=== PATIENT | male | born 1980 | race Caucasian/White ===

== ENCOUNTER 2016-07-17 17:05 | Emergency (ER) | payer OTHER ==
[2016-07-17 17:14] VITALS: BP 126/69; PULSE 93; TEMP 97.6; BMI 19.9
--- NOTE | 2016-07-17 18:44 | PDOC ---
History of Present Illness - General Stated Complaint: SWOLLEN FEET Time Seen by Provider: 07/17/16 17:20 History Source: Patient Exam Limitations: Language Barrier - History of Present Illness Initial Comments: 07/17/16 18:38 CC homeless with swelling to feet x 1 days post could in rain Severity: mild Associated Symptoms: denies: cough, fever/chills, nausea/vomiting Past History - Past Medical History Allergies/Adverse Reactions: Allergies Allergy/AdvReac Type Severity Reaction Status Date / Time No Known Allergies Allergy Verified 07/17/16 17:14 Home Medications: Ambulatory Orders Alprazolam [Xanax] 0.5 mg PO TID #6 tablet MDD 3 10/02/15 Asthma: Yes (as a child) Cancer: No Cardiac Disorders: No CVA: No COPD: No CHF: No Dementia: No Diabetes: No GI Disorders: No Disorders: No HTN: No Hypercholesterolemia: No Kidney Stones: No Liver Disease: No Suicide Attempt (Hx): No Seizures: No Thyroid Disease: No - Surgical History Abdominal Surgery: No Appendectomy: No Cardiac Surgery: No Cholecystectomy: No Lung Surgery: No Neurologic Surgery: No Orthopedic Surgery: No - Reproductive History Testicular Surgery: No - Psycho/Social/Smoking Cessation Hx Anxiety: No Suicidal Ideation: No Smoking History: Current every day smoker Have you smoked in the past 12 months: No Number of Cigarettes Smoked Daily: 7 Cigars Per Day: 0 Information on smoking cessation initiated: No 'Breaking Loose' booklet given: 04/29/14 Hx Alcohol Use: Yes Drug/Substance Use Hx: No Substance Use Type: Alcohol, Cocaine, Marijuana Hx Substance Use Treatment: No Review of Systems - Review of Systems Constitutional: No: Chills, Fever, Malaise HEENTM: Yes: Blurred Vision, Nose Congestion Respiratory: No: Symptoms reported, Cough, Hemoptysis Cardiac (ROS): No: Edema ABD/GI: Yes: Symptoms Reported *Physical Exam - Vital Signs Last Vital Signs Temp Pulse Resp BP Pulse Ox 97.6 F 93 H 18 126/69 98 07/17/16 17:09 07/17/16 17:09 07/17/16 17:09 07/17/16 17:09 07/17/16 17:09 - Physical Exam General Appearance: Yes: Appropriately Dressed. No: Apparent Distress HEENT: positive: TMs Normal, Pharynx Normal Neck: negative: Rigid Respiratory/Chest: positive: Lungs Clear, Accessory Muscle Use Cardiovascular: positive: Regular Rhythm, Regular Rate. negative: Murmur Integumentary: positive: Other (mild STS to feet slight redness; toes, feet= skin but no skin breaks, infection) Medical Decision Making - Medical Decision Making 07/17/16 18:42 will suggest pt elevate feet JULIET; wound check in ED in 2 days *DC/Admit/Observation/Transfer Diagnosis at time of Disposition: Dependent edema, Burning feet syndrome - Discharge Dispostion Disposition: HOME Condition at time of disposition: Stable Admit: No - Patient Instructions Additional Instructions: rest, and elevate feet; return to ED in 2 days for reevaluation; keep feet clean and dry
== END 2016-07-17 18:46 | disposition home or self-care (01) ==
LOC: JERFT 17:05
DX: R60.0 Localized edema (principal); E53.9 Vitamin B deficiency, unspecified; Z59.0 Homelessness
CPT/HCPCS: 99281-25

== ENCOUNTER 2016-07-18 05:27 | Emergency (ER) | payer OTHER ==
--- NOTE | 2016-07-18 06:13 | PDOC ---
[id number] No Limitations - History of Present Illness Initial Comments: 07/18/16 06:16 Patient is a 35 year old male with no pmhx who presents to the ED with erythema and swelling to his feet bilaterally secondary to wearing his shoes and socks for long period of time. Patient states that he is homeless. Allergies - NKA <Anne Jimenez - Last Filed: 07/18/16 06:16> - General History Source: Patient <KrystianThom cat - Last Filed: 07/18/16 19:39> - General Chief Complaint: Edema Stated Complaint: SWELLING,LEGS Time Seen by Provider: 07/18/16 06:12 Past History <Anne Jimenez - Last Filed: 07/18/16 06:16> - Past Medical History Asthma: Yes (as a child) Cancer: No Cardiac Disorders: No CVA: No COPD: No CHF: No Dementia: No Diabetes: No GI Disorders: No Disorders: No HTN: No Hypercholesterolemia: No Kidney Stones: No Liver Disease: No Suicide Attempt (Hx): No Seizures: No Thyroid Disease: No - Surgical History Abdominal Surgery: No Appendectomy: No Cardiac Surgery: No Cholecystectomy: No Lung Surgery: No Neurologic Surgery: No Orthopedic Surgery: No - Reproductive History Testicular Surgery: No - Psycho/Social/Smoking Cessation Hx Anxiety: No Suicidal Ideation: No Smoking History: Current every day smoker Have you smoked in the past 12 months: No Number of Cigarettes Smoked Daily: 5 Cigars Per Day: 0 Information on smoking cessation initiated: No 'Breaking Loose' booklet given: 04/29/14 Hx Alcohol Use: No Drug/Substance Use Hx: No Substance Use Type: Alcohol, Cocaine, Marijuana Hx Substance Use Treatment: No <Thom Garcia - Last Filed: 07/18/16 19:39> - Past Medical History Allergies/Adverse Reactions: Allergies Allergy/AdvReac Type Severity Reaction Status Date / Time No Known Allergies Allergy Verified 07/17/16 17:14 Home Medications: Ambulatory Orders Clotrimazole [Lotrimin AF] 24 gm TP TID #1 cream..g. 07/18/16 Review of Systems - Review of Systems Able to Perform ROS?: Yes Comments:: 07/18/16 06:16 CONSTITUTIONAL: Absent: fever, chills, diaphoresis, generalized weakness, malaise, loss of appetite HEENT: Absent: rhinorrhea, nasal congestion, throat pain, throat swelling, difficulty swallowing, mouth swelling, ear pain, eye pain, visual Changes CARDIOVASCULAR: Absent: chest pain, syncope, palpitations, irregular heart rate, lightheadedness , peripheral edema RESPIRATORY: Absent: cough, shortness of breath, dyspnea with exertion, orthopnea, wheezing, stridor, hemoptysis GASTROINTESTINAL: Absent: abdominal pain, abdominal distension, nausea, vomiting, diarrhea, constipation, melena, hematochezia GENITOURINARY: Absent: dysuria, frequency, urgency, hesitancy, hematuria, flank pain, genital pain MUSCULOSKELETAL: Present: redness and swelling of the feet. Absent: myalgia, arthralgia, joint swelling SKIN: Absent: rash, itching, pallor HEMATOLOGIC/IMMUNOLOGIC: Absent: easy bleeding, easy bruising, lymphadenopathy, frequent infections ENDOCRINE: Absent: unexplained weight gain, unexplained weight loss, heat intolerance, cold intolerance NEUROLOGIC: Absent: headache, focal weakness or paresthesias, dizziness, unsteady gait, seizure, mental status changes, bladder or bowel incontinence PSYCHIATRIC: Absent: anxiety, depression, suicidal or homicidal ideation, hallucinations. <Anne Jimenez - Last Filed: 07/18/16 06:16> *Physical Exam - Vital Signs Last Vital Signs Temp Pulse Resp BP Pulse Ox 97.3 F L 85 17 109/71 100 07/18/16 06:07 07/18/16 06:07 07/18/16 06:07 07/18/16 06:07 07/18/16 06:07 - Physical Exam Comments: 07/18/16 06:17 GENERAL: Well developed, well nourished. Awake and alert. In no acute distress. HEENT: Normocephalic, atraumatic. PERRLA, EOMI. No conjunctival pallor. Sclerae are non -icteric. Moist mucous membranes. Oropharynx is clear. NECK: Supple. Full ROM. No JVD. Carotid pulses 2+ and symmetric, without bruits. No thyromegaly. No lymphadenopathy. CARDIOVASCULAR: Regular rate and rhythm. No murmurs, rubs, or gallops. Distal pulses are 2+ and symmetric. PULMONARY: No evidence of respiratory distress. Lungs clear to auscultation bilaterally. No wheezing, rales or rhonchi. ABDOMINAL: Soft. Non-tender. Non-distended. No rebound or guarding. No organomegaly. Normoactive bowel sounds. MUSCULOSKELETAL Normal range of motion at all joints. No bony deformities or tenderness. No CVA tenderness. EXTREMITIES: No cyanosis. No clubbing. No edema. No calf tenderness. SKIN: (+) Satellite lesions to feet and toes with erythema. Warm and dry. Normal capillary refill. No rashes. No jaundice. NEUROLOGICAL: Alert, awake, appropriate. Cranial nerves 2-12 intact. No deficits to light touch and temperature in face, upper extremities and lower extremities. No motor deficits in the in face, upper extremities and lower extremities. Normoreflexic in the upper and lower extremities. Normal speech. Toes are downgoing bilaterally. Gait is normal without ataxia. PSYCHIATRIC: Cooperative. Good eye contact. Appropriate mood and affect. <Anne Jimenez - Last Filed: 07/18/16 06:16> - Vital Signs Last Vital Signs Temp Pulse Resp BP Pulse Ox 97.3 F L 85 17 109/71 100 07/18/16 06:07 07/18/16 06:07 07/18/16 06:07 07/18/16 06:07 07/18/16 06:07 <Thom Garcia - Last Filed: 07/18/16 19:39> Medical Decision Making - Medical Decision Making 07/18/16 06:20 Dr. Garcia: The scribe's documentation has been prepared under my direction and personally reviewed by me in its entirery. I confirm that the note above accurately reflects all work, treatment, procedures, and medical decision making performed by me. <Thom Garcia - Last Filed: 07/18/16 19:39> *DC/Admit/Observation/Transfer - Attestations Scribe Attestion: 07/18/16 06:18 Documentation prepared by DARRELL Hood, acting as director of medical services for Thom Garcia DO. <Anne Jimenez - Last Filed: 07/18/16 06:16> - Discharge Dispostion Admit: No <Thom Garcia - Last Filed: 07/18/16 19:39> Diagnosis at time of Disposition: Burning feet syndrome, Dependent edema - Discharge Dispostion Disposition: HOME Condition at time of disposition: Stable - Prescriptions Prescriptions: Clotrimazole [Lotrimin AF] 24 gm TP TID #1 cream..g. - Patient Instructions Printed Discharge Instructions: DI for Athlete's Foot Additional Instructions: apply cream twice daily. Keep feet as clean as possible.
[2016-07-18 06:15] VITALS: BP 109/71; PULSE 85; TEMP 97.3; BMI 19.9
[2016-07-18] MEDS ORDERED: FLUCONAZOLE 100 MG TABLET (UD) PO ONE (06:16)
[2016-07-18] MEDS ORDERED: FLUCONAZOLE 100 MG TABLET (UD) ONE (06:29)
[2016-07-18] MEDS ORDERED: BACITRACIN 30 GM TUBE TOPICAL OINTMENT TP ONE (06:31)
== END 2016-07-18 06:35 | disposition home or self-care (01) ==
LOC: JER 05:27
DX: R60.0 Localized edema (principal); E53.9 Vitamin B deficiency, unspecified; Z59.0 Homelessness
CPT/HCPCS: 99281-25

== ENCOUNTER 2019-04-14 08:23 | Inpatient (IN) | payer OTHER ==
--- NOTE | 2019-04-14 08:50 | BHS.RME ---
Substance Use & Tx History - Substance Use History Alcohol Substance amount: 1.5 pint vodka plus 2-3 beers Frequency of use: Daily Substance route: Oral Date of Last Use: 04/13/19 Cannabis Substance amount: 1-2 blunts Frequency of use: Daily Substance route: Smoking Date of Last Use: 03/06/19 Cocaine (Powder) Substance amount: 2-3 grams Frequency of use: Once a month Substance route: Inhalation (ex: sniffing or snorting) Date of Last Use: 03/06/19 Nicotine Substance amount: 1ppd Frequency of use: Daily Substance route: Smoking Date of Last Use: 04/14/19 Physical/Psych/Mental Status - Behavior General Behavior: Increased activity (restlessness, agitation) Eye Contact: Normal - Cooperativeness Cooperativeness: Cooperative - Thinking Thought Processes: Tight, Logical, Goal Directed CIWA Nausea/Vomitin-Mild Nausea/No Vomiting Muscle Tremors: 2 Anxiety: 3 Agitation: 1-Slight > Activity Paroxysmal Sweats: No Perspiration Orientation: 0-Oriented Tacttile Disturbances: 0-None Auditory Disturbances: 0-None Visual Disturbances: 0-None Headache: 5-Severe CIWA-Ar Total Score: 12
[2019-04-14 09:14] VITALS: BMI 20.3
--- NOTE | 2019-04-14 10:06 | HP ---
CIWA Score Nausea/Vomitin-Mild Nausea/No Vomiting Muscle Tremors: 2 Anxiety: 3 Agitation: 1-Slight > Activity Paroxysmal Sweats: No Perspiration Orientation: 0-Oriented Tacttile Disturbances: 0-None Auditory Disturbances: 0-None Visual Disturbances: 0-None Headache: 5-Severe CIWA-Ar Total Score: 12 - Admission Criteria [facility] Guidelines: Admission for Medically Managed Detox: Requires at least one of the followin. CIWA greater than 12 2. Seizures within the past 24 hours 3. Delirium tremens within the past 24 hours 4. Hallucinations within the past 24 hours 5. Acute intervention needed for co occurring medical disorder 6. Acute intervention needed for co occurring psychiatric disorder 7. Severe withdrawal that cannot be handled at a lower level of care (continued vomiting, continued diarrhea, abnormal vital signs) requiring intravenous medication and/or fluids 8. Admitting History and Physical - Admission Chief Complaint: Mr. Salvador presents to [facility] asking for admission to stop drinking. History of Present Illness: Mr. Salvador presents to [facility] asking for admission to stop drinking. He is a 38 yo gentleman who was last here in April of 2014. PMH: noncontributory Psych; schizophrenia PSH: none Substance use history Alcohol: 1.5 pints daily Vodka, 2-3 12 ounce cans of beer daily, first drink at the age of 17y, last drink yesterday. Has had black out, few years ago. No hx of withdrawal seizure. 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 When abstinent he shakes and get anxious and depressed. Cocaine: first use age 28, last use: last month, 2-3 grams once a month, sniff Cannabis: first use age 17 y, last use: March 06, 2019, smoke Cigs: 1ppd Denies: heroin, methadone, benzos - Smoking History Smoking history: Current every day smoker Have you smoked in the past 12 months: No Aproximately how many cigarettes per day: 20 - Alcohol/Substance Use Hx Alcohol Use: No Admission ROS [facility] Allergies/Adverse Reactions: Allergies Allergy/AdvReac Type Severity Reaction Status Date / Time No Known Allergies Allergy Verified 04/14/19 09:10 Exam Limitations: No Limitations - Ebola screening Have you traveled outside of the country in the last 21 days: No Have you had contact with anyone from an Ebola affected area: No Have you been sick,other than usual withdrawal symptoms: No Do you have a fever: No - Review of Systems Constitutional: No Symptoms Reported EENT: reports: Blurred Vision Respiratory: reports: No Symptoms reported Cardiac: reports: No Symptoms Reported GI: reports: Nausea : reports: No Symptoms Reported Musculoskeletal: reports: No Symptoms Reported Integumentary: reports: No Symptoms Reported Neuro: reports: Headache (bitemporal, one day, grades 5/10) Endocrine: reports: No Symptoms Reported Hematology: reports: No Symptoms Reported Psychiatric: reports: Anxious Patient History - Patient Medical History Hx Asthma: No Hx Chronic Obstructive Pulmonary Disease (COPD): No Hx Cancer: No Hx Cardiac Disorders: No Hx Congestive Heart Failure: No Hx Hypertension: No Hx Hypercholesterolemia: No Hx Pacemaker: No HX Cerebrovascular Accident: No Hx Seizures: No Hx Dementia: No Hx Diabetes: No Hx Gastrointestinal Disorders: No Hx Liver Disease: No Hx Genitourinary Disorders: No Hx Sexually Transmitted Disorders: No Hx Renal Disease (ESRD): No Hx Thyroid Disease: No Hx Human Immunodeficiency Virus (HIV): No Hx Hepatitis C: No Hx Depression: No Hx Suicide Attempt: No Hx Schizophrenia: Yes (dx at age 22) - Patient Surgical History Past Surgical History: No Hx Neurologic Surgery: No Hx Cataract Extraction: No Hx Cardiac Surgery: No Hx Lung Surgery: No Hx Breast Surgery: No Hx Breast Biopsy: No Hx Abdominal Surgery: No Hx Appendectomy: No Hx Cholecystectomy: No Hx Genitourinary Surgery: No Hx Section: No Hx Orthopedic Surgery: No Anesthesia Reaction: No - PPD History Previous Implant?: Yes Documented Results: Negative w/proof Implanted On Prior [facility] Admission?: Yes Date: 05/01/14 Results: Negative - Smoking Cessation Smoking history: Current every day smoker Have you smoked in the past 12 months: No Aproximately how many cigarettes per day: 20 Cigars Per Day: 0 Hx Chewing Tobacco Use: No Initiated information on smoking cessation: Yes 'Breaking Loose' booklet given: 04/14/19 - Substances abused Alcohol Substance route: Oral Frequency: Daily Amount used: 1.5 pints and 2-3 beers Age of first use: 17 Date of last use: 04/13/19 Cocaine Substance route: Inhalation Frequency: 1-3 times last 30 days Amount used: 2-3 grams Age of first use: 28 Date of last use: 03/06/19 Marijuana/Hashish Substance route: Smoking Frequency: 1-3 times last 30 days Amount used: 2-3 blunts Age of first use: 17 Date of last use: 03/06/19 Admission Physical Exam [facility] - Vital Signs Vital Signs: Vital Signs - 24 hr 04/14/19 04/14/19 09:09 09:11 Temperature 97.1 F L 97.1 F L Pulse Rate 125 H 125 H Respiratory 18 18 Rate Blood Pressure 139/93 139/93 - Physical General Appearance: Yes: Within Normal Limits, Thin HEENTM: Yes: Hearing grossly Normal, Normocephalic Respiratory: Yes: Lungs Clear, Normal Breath Sounds Neck: Yes: Within Normal Limits Breast: Yes: Breast Exam Deferred Cardiology: Yes: S1, S2, Tachycardia Abdominal: Yes: Non Tender, Flat, Soft, Decreased BS Genitourinary: Yes: Other (deferred) Back: Yes: Normal Inspection Musculoskeletal: Yes: Within Normal Limits Extremities: Yes: Within Normal Limits Neurological: Yes: Fully Oriented, Alert Integumentary: Yes: Within Normal Limits - Diagnostic (1) Alcohol dependence with withdrawal, uncomplicated Current Visit: Yes Status: Acute (2) Cocaine abuse Current Visit: Yes Status: Acute (3) Schizophrenia Current Visit: No Status: Chronic (4) Cannabis abuse Current Visit: Yes Status: Acute (5) Nicotine dependence Current Visit: Yes Status: Acute Cleared for Admission [facility] - Detox or Rehab [facility] Level of Care: Medically Managed Breathalyzer - Breathalyzer Breathalyzer: 0 Urine Drug Screen - Test Device Lot number: [id number] Expiration date: 01/19/21 - Control Is test valid?: Yes - Results Drug screen NEGATIVE: Yes Inpatient Rehab Admission - Rehab Decision to Admit Inpatient rehab admission?: No
[2019-04-14] MEDS ORDERED: MAGNESIUM HYDROX 2400MG/30ML ORAL SUSPENSION 30 ML CUP PO PRN (10:11)
[2019-04-14] MEDS ORDERED: MENTHOL/PHENOL 1 EACH UD MM PRN (10:11)
[2019-04-14] MEDS ORDERED: IBUPROFEN 400 MG TABLET (FP) PO PRN (10:11)
[2019-04-14] MEDS ORDERED: BISMUTH SUBSALICYLATE 262 MG/15 ML BTL PO PRN (10:11)
[2019-04-14] MEDS ORDERED: MELATONIN 5 MG TABLETS PO PRN (10:11)
[2019-04-14] MEDS ORDERED: ACETAMINOPHEN 325 MG TABLET (FP) PO PRN ×2 (10:11)
[2019-04-14] MEDS ORDERED: chlordiazePOXIDE HCL 25 MG CAPSULE PO PRN (10:11)
[2019-04-14] MEDS ORDERED: hydrOXYzine PAMOATE 25 MG CAPSULE (FP) PO PRN (10:11)
[2019-04-14] MEDS ORDERED: MAGNESIUM CITRATE 300 ML BOTTLE PO PRN (10:11)
--- NOTE | 2019-04-14 11:57 | CONSULT ---
[facility] Psychiatric Consult - Data Date of interview: 04/14/19 Admission source: Self-referred Identifying data: Mr Salvador is a 38 years old single male, unemployed receiving SSI, domiciled seeking detox treatment for alcohol, cocaine and cannabis Substance Abuse History: Reports history of alcohol, cocaine and marijuana use. Refer to addiction counselor's summary for further information Medical History: Unremarkable. Smokes cigarettes 1 ppd Psychiatric History: Patient is known for one previous admission to this facility in April 2014. Historical narrative remains consistent. Reports that his first psychiatric contact occured in 2000 when he began to hear voices and feeling paranoid. He said that he was admitted to a facility in [facility] and started on psychotropic medications. Reports multiple subsequent psychiatric hospitalizations at various facilities including [facility], [facility](formerly [facility]), [facility]. [facility] and most recently [facility] in [place], [place]. Reports receiving outpatient psychiatric treatment at [facility] and he is prescribed Invega Sustena Q Montly. He does not dosage of medication but reports that he received his last injection on 03/26/19 and he is due on 04/23/19. Denies previous suicidal attempt. At present, denies experiencing psychotic symptoms, S/H ideation. However, reports feeling anxious Physical/Sexual Abuse/Trauma History: Denies history of abuse as a child or DV relationship as an adult Mental Status Exam - Mental Status Exam Alert and Oriented to: Time, Place, Person Cognitive Function: Fair Patient Appearance: Well Groomed Mood: Anxious Affect: Appropriate Patient Behavior: Cooperative Speech Pattern: Clear Voice Loudness: Normal, Limited Variation Thought Process: Goal Oriented Thought Disorder: Not Present Hallucinations: Denies Suicidal Ideation: Denies Homicidal Ideation: Denies Insight/Judgement: Poor Sleep: Well Appetite: Good Muscle strength/Tone: Normal Gait/Station: Normal Psychiatric Findings - Problem List ([place] 1, 2,3) (1) Paranoid schizophrenia Current Visit: No Status: Chronic (2) Substance-induced anxiety disorder Current Visit: Yes Status: Acute (3) Alcohol dependence with withdrawal, uncomplicated Current Visit: Yes Status: Acute (4) Cocaine abuse Current Visit: Yes Status: Acute (5) Cannabis abuse Current Visit: Yes Status: Acute (6) Nicotine dependence Current Visit: Yes Status: Chronic - Initial Treatment Plan Initial Treatment Plan: Continue inpatient detoxification
[2019-04-14] MEDS: chlordiazePOXIDE HCL 25 MG CAPSULE PO SCH ×3 (12:02→22:55)
[2019-04-14] MEDS: NICOTINE 21 MG/24 HOURS TOPICAL PATCH TD SCH (12:03)
[2019-04-14] MEDS: MAG HYDROX/AL HYDROX/SIMETH 30 ML UNIT-DOSE CUP PO PRN (14:28)
[2019-04-14 16:17] LABS: ALBUMIN 4.3 g/dl (3.4-5.0); BILIRUBIN,TOTAL 0.8 mg/dL (0.2-1); BLOOD UREA NITROGEN 7.7 mg/dL (7-18); CALCIUM 9.4 mg/dL (8.5-10.1); CREATININE 0.7 mg/dL (0.55-1.3); POTASSIUM 4.1 mmol/L (3.5-5.1)
[2019-04-14 16:23] LABS: HEMATOCRIT 40.5 % (35.4-49); HEMOGLOBIN 13.7 GM/dL (11.7-16.9); MCH 34.5 pg (25.7-33.7); MCHC 33.7 g/dl (32.0-35.9); MEAN CELL VOLUME 102.3 fl (80-96); MEAN PLT VOLUME 7.2 fl (7.5-11.1); PLATELET COUNT 257 K/MM3 (134-434); RBC 3.96 M/mm3 (4.00-5.60); RDW 16.5 % (11.9-15.9); WHITE BLOOD COUNT 4.1 K/mm3 (4.0-10.0)
[2019-04-14] MEDS: THIAMINE HCL 100 MG TABLET (FP) PO SCH (22:55)
[2019-04-15] MEDS: chlordiazePOXIDE HCL 25 MG CAPSULE PO SCH (05:42)
--- NOTE | 2019-04-15 09:47 | PN ---
[facility] CIWA - CIWA Score Nausea/Vomitin-No Nausea/No Vomiting Muscle Tremors: 2 Anxiety: 3 Agitation: 1-Slight > Activity Paroxysmal Sweats: 2 Orientation: 0-Oriented Tacttile Disturbances: 0-None Auditory Disturbances: 0-None Visual Disturbances: 1-Very Mild Sensitivity Headache: 1-Very Mild CIWA-Ar Total Score: 10 S Progress Note (SOAP) Subjective: 38 years old male admitted on 04/14/19 for alcohol withdrawal sx management treating with librium detox regiment feeling tired resting in bed encourage oral fluid and hygiene Objective: 04/15/19 09:54 Vital Signs Temperature 97.3 F L 04/15/19 06:50 Pulse Rate 67 04/15/19 06:50 Respiratory Rate 18 04/15/19 06:50 Blood Pressure 93/56 L 04/15/19 06:50 O2 Sat by Pulse Oximetry (%) Laboratory Last Values WBC 4.1 K/mm3 (4.0-10.0) 04/14/19 10:57 RBC 3.96 M/mm3 (4.00-5.60) L 04/14/19 10:57 Hgb 13.7 GM/dL (11.7-16.9) 04/14/19 10:57 Hct 40.5 % (35.4-49) 04/14/19 10:57 MCV 102.3 fl (80-96) H 04/14/19 10:57 MCH 34.5 pg (25.7-33.7) H D 04/14/19 10:57 MCHC 33.7 g/dl (32.0-35.9) 04/14/19 10:57 RDW 16.5 % (11.9-15.9) H 04/14/19 10:57 Plt Count 257 K/MM3 (134-434) D 04/14/19 10:57 MPV 7.2 fl (7.5-11.1) L 04/14/19 10:57 Sodium 137 mmol/L (136-145) 04/14/19 10:57 Potassium 4.1 mmol/L (3.5-5.1) 04/14/19 10:57 Chloride 97 mmol/L (98-107) L 04/14/19 10:57 Carbon Dioxide 31 mmol/L (21-32) 04/14/19 10:57 Anion Gap 9 MMOL/L (8-16) 04/14/19 10:57 BUN 7.7 mg/dL (7-18) 04/14/19 10:57 Creatinine 0.7 mg/dL (0.55-1.3) 04/14/19 10:57 Est GFR (CKD-EPI)AfAm 139.73 04/14/19 10:57 Est GFR (CKD-EPI)NonAf 120.56 04/14/19 10:57 Random Glucose 109 mg/dL (74-106) H 04/14/19 10:57 Calcium 9.4 mg/dL (8.5-10.1) 04/14/19 10:57 Total Bilirubin 0.8 mg/dL (0.2-1) 04/14/19 10:57 AST 138 U/L (15-37) H 04/14/19 10:57 ALT 57 U/L (13-61) 04/14/19 10:57 Alkaline Phosphatase 139 U/L (45-117) H 04/14/19 10:57 Total Protein 8.0 g/dl (6.4-8.2) 04/14/19 10:57 Albumin 4.3 g/dl (3.4-5.0) 04/14/19 10:57 RPR Titer Nonreactive (NONREACTIVE) 04/14/19 10:57 lab noted ast elevation discontinue librium begin ativan regiment Assessment: 04/15/19 10:10 alcohol withdrawal reports ast elevation "every time I drink" Plan: ativan regiment encourage oral fluid agrees ativan detox regiment
[2019-04-15] MEDS: NICOTINE 21 MG/24 HOURS TOPICAL PATCH TD SCH (10:12)
[2019-04-15] MEDS: PRENATAL VITAMINS W/ FOLIC ACID TABLET (FP) PO SCH (10:12)
[2019-04-15] MEDS ORDERED: NICOTINE 21 MG/24 HOURS TOPICAL PATCH TD PRN (10:15)
[2019-04-15] MEDS: LORazepam 1 MG TABLET PO SCH ×3 (10:47→23:27)
[2019-04-15] MEDS: NICOTINE POLACRILEX 4 MG GUM BUC PRN ×4 (10:47→17:09)
[2019-04-15] MEDS: THIAMINE HCL 100 MG TABLET (FP) PO SCH (23:27)
[2019-04-16] MEDS: NICOTINE POLACRILEX 4 MG GUM BUC PRN ×7 (02:08→17:31)
[2019-04-16] MEDS ORDERED: chlordiazePOXIDE HCL 25 MG CAPSULE PO SCH (05:00)
[2019-04-16] MEDS: LORazepam 1 MG TABLET PO SCH ×3 (05:47→22:58)
[2019-04-16] MEDS: PRENATAL VITAMINS W/ FOLIC ACID TABLET (FP) PO SCH (10:08)
--- NOTE | 2019-04-16 13:20 | PN ---
[facility] CIWA - CIWA Score Nausea/Vomitin-No Nausea/No Vomiting Muscle Tremors: 2 Anxiety: 3 Agitation: 1-Slight > Activity Paroxysmal Sweats: 2 Orientation: 0-Oriented Tacttile Disturbances: 0-None Auditory Disturbances: 0-None Visual Disturbances: 1-Very Mild Sensitivity Headache: 0-None Present CIWA-Ar Total Score: 9 S Progress Note (SOAP) Subjective: 38 years old male admitted on 04/14/19 for alcohol withdrawal sx management treating with ativan detox regiment request ensure supplement bmi 20.4 begin ensure 90ml po tid Objective: 04/16/19 13:18 Vital Signs Temperature 97.3 F L 04/16/19 08:33 Pulse Rate 112 H 04/16/19 08:33 Respiratory Rate 20 04/16/19 08:33 Blood Pressure 128/84 04/16/19 08:33 O2 Sat by Pulse Oximetry (%) Laboratory Last Values WBC 4.1 K/mm3 (4.0-10.0) 04/14/19 10:57 RBC 3.96 M/mm3 (4.00-5.60) L 04/14/19 10:57 Hgb 13.7 GM/dL (11.7-16.9) 04/14/19 10:57 Hct 40.5 % (35.4-49) 04/14/19 10:57 MCV 102.3 fl (80-96) H 04/14/19 10:57 MCH 34.5 pg (25.7-33.7) H D 04/14/19 10:57 MCHC 33.7 g/dl (32.0-35.9) 04/14/19 10:57 RDW 16.5 % (11.9-15.9) H 04/14/19 10:57 Plt Count 257 K/MM3 (134-434) D 04/14/19 10:57 MPV 7.2 fl (7.5-11.1) L 04/14/19 10:57 Sodium 137 mmol/L (136-145) 04/14/19 10:57 Potassium 4.1 mmol/L (3.5-5.1) 04/14/19 10:57 Chloride 97 mmol/L (98-107) L 04/14/19 10:57 Carbon Dioxide 31 mmol/L (21-32) 04/14/19 10:57 Anion Gap 9 MMOL/L (8-16) 04/14/19 10:57 BUN 7.7 mg/dL (7-18) 04/14/19 10:57 Creatinine 0.7 mg/dL (0.55-1.3) 04/14/19 10:57 Est GFR (CKD-EPI)AfAm 139.73 04/14/19 10:57 Est GFR (CKD-EPI)NonAf 120.56 04/14/19 10:57 Random Glucose 109 mg/dL (74-106) H 04/14/19 10:57 Calcium 9.4 mg/dL (8.5-10.1) 04/14/19 10:57 Total Bilirubin 0.8 mg/dL (0.2-1) 04/14/19 10:57 AST 138 U/L (15-37) H 04/14/19 10:57 ALT 57 U/L (13-61) 04/14/19 10:57 Alkaline Phosphatase 139 U/L (45-117) H 04/14/19 10:57 Total Protein 8.0 g/dl (6.4-8.2) 04/14/19 10:57 Albumin 4.3 g/dl (3.4-5.0) 04/14/19 10:57 RPR Titer Nonreactive (NONREACTIVE) 04/14/19 10:57 lab noted 04/16/19 13:19 continue ativan repeat ast 04/18/19 Assessment: 04/16/19 13:19 alcohol withdrawal Plan: ativan regiment
[2019-04-16] MEDS: LORazepam 0.5 MG TABLET PO PRN (15:24)
[2019-04-16] MEDS: THIAMINE HCL 100 MG TABLET (FP) PO SCH (22:58)
[2019-04-17] MEDS ORDERED: chlordiazePOXIDE HCL 10 MG CAPSULE PO PRN
[2019-04-17] MEDS: NICOTINE POLACRILEX 4 MG GUM BUC PRN ×6 (00:17→17:35)
[2019-04-17] MEDS ORDERED: chlordiazePOXIDE HCL 10 MG CAPSULE PO SCH (05:00)
[2019-04-17] MEDS: LORazepam 1 MG TABLET PO SCH ×6 (05:40→22:40)
[2019-04-17] MEDS: LORazepam 0.5 MG TABLET PO PRN (10:25)
[2019-04-17] MEDS: PRENATAL VITAMINS W/ FOLIC ACID TABLET (FP) PO SCH (10:25)
[2019-04-17] MEDS: METHOCARBAMOL 500 MG TABLET PO PRN ×2 (10:25→17:33)
--- NOTE | 2019-04-17 10:50 | PN ---
S CIWA - CIWA Score Nausea/Vomitin-No Nausea/No Vomiting Muscle Tremors: None Anxiety: 1-Mildly Anxious Agitation: 0-Normal Activity Paroxysmal Sweats: No Perspiration Orientation: 0-Oriented Tacttile Disturbances: 0-None Auditory Disturbances: 0-None Visual Disturbances: 0-None Headache: 0-None Present CIWA-Ar Total Score: 1 BHS Progress Note (SOAP) Subjective: Hoping to go to outpt Rehab Objective: 04/17/19 10:46 Laboratory Tests 04/14/19 04/14/19 04/14/19 10:57 10:57 10:57 WBC 4.1 RBC 3.96 L Hgb 13.7 Hct 40.5 MCV 102.3 H MCH 34.5 H D MCHC 33.7 RDW 16.5 H Plt Count 257 D MPV 7.2 L Sodium 137 Potassium 4.1 Chloride 97 L Carbon Dioxide 31 Anion Gap 9 BUN 7.7 Creatinine 0.7 Est GFR (CKD-EPI)AfAm 139.73 Est GFR (CKD-EPI)NonAf 120.56 Random Glucose 109 H Calcium 9.4 Total Bilirubin 0.8 AST 138 H ALT 57 Alkaline Phosphatase 139 H Total Protein 8.0 Albumin 4.3 RPR Titer Nonreactive Vital Signs Temperature 96.5 F L 04/17/19 08:35 Pulse Rate 107 H 04/17/19 08:35 Respiratory Rate 17 04/17/19 08:35 Blood Pressure 119/75 04/17/19 08:35 O2 Sat by Pulse Oximetry (%) PE Gnl: WDWN, in no distress Mental status: awake alert Motor: moves limbs symmetrically Coord: nl Assessment: 04/17/19 10:47 04/17/19 10:48 1. Alcohol use disorder 2. elevated LfT 3. cannabis use disorder 4. cocaine use disorder Plan: 1. continue Ativan protocol for alcohol use disorder 2. off Librium due to elevated LfT 3. pending d/c to outpt rehab, regular discharge on 04/19
[2019-04-17] MEDS: MAG HYDROX/AL HYDROX/SIMETH 30 ML UNIT-DOSE CUP PO PRN (11:23)
[2019-04-17] MEDS: THIAMINE HCL 100 MG TABLET (FP) PO SCH (22:28)
[2019-04-18] MEDS ORDERED: LORazepam 0.5 MG TABLET PO PRN (00:01)
[2019-04-18] MEDS: NICOTINE POLACRILEX 4 MG GUM BUC PRN ×2 (04:33→06:56)
[2019-04-18] MEDS: LORazepam 1 MG TABLET PO SCH (04:50)
[2019-04-18] MEDS ORDERED: LORazepam 0.5 MG TABLET PO SCH (05:00)
[2019-04-18] MEDS ORDERED: chlordiazePOXIDE HCL 10 MG CAPSULE PO SCH (05:00)
[2019-04-18] MEDS: METHOCARBAMOL 500 MG TABLET PO PRN (05:33)
[2019-04-18 07:19] VITALS: BP 113/74; PULSE 95; TEMP 97
--- NOTE | 2019-04-18 13:31 | DS ---
[facility] Detox Discharge Summary Admission Date: 04/14/19 Discharge Date: 04/18/19 (Pt. left AMA) - History Present History: Alcohol Dependence, Cannabis Dependence, Cocaine Dependence Additional Comments: Pt left AMA. Pt did not complete the detox protocol. Pt is still tremolous and c /o withdrawal symptoms. Pt states, "i need to go and help my mother take care of something". An attempt to let pt stay and complete the detox protocol failed. Pt is encouraged to follow-up with an outpatient CD program and also to follow-up with his pmd. Pt verbalized understanding of the information given. Pt is alert and oriented x3 and in no acute respiratory distress. Pertinent Past History: h/o alcohol, cocaine, and cannabis use disorder. - Physical Exam Results Vital Signs: Vital Signs Temperature 97 F L 04/18/19 07:19 Pulse Rate 95 H 04/18/19 07:19 Respiratory Rate 16 04/18/19 07:19 Blood Pressure 113/74 04/18/19 07:19 O2 Sat by Pulse Oximetry (%) Vital Signs 04/18/19 07:19 Temperature 97 F L Pulse Rate 95 H Respiratory 16 Rate Blood Pressure 113/74 Laboratory Last Values WBC 4.1 K/mm3 (4.0-10.0) 04/14/19 10:57 RBC 3.96 M/mm3 (4.00-5.60) L 04/14/19 10:57 Hgb 13.7 GM/dL (11.7-16.9) 04/14/19 10:57 Hct 40.5 % (35.4-49) 04/14/19 10:57 MCV 102.3 fl (80-96) H 04/14/19 10:57 MCH 34.5 pg (25.7-33.7) H D 04/14/19 10:57 MCHC 33.7 g/dl (32.0-35.9) 04/14/19 10:57 RDW 16.5 % (11.9-15.9) H 04/14/19 10:57 Plt Count 257 K/MM3 (134-434) D 04/14/19 10:57 MPV 7.2 fl (7.5-11.1) L 04/14/19 10:57 Sodium 137 mmol/L (136-145) 04/14/19 10:57 Potassium 4.1 mmol/L (3.5-5.1) 04/14/19 10:57 Chloride 97 mmol/L (98-107) L 04/14/19 10:57 Carbon Dioxide 31 mmol/L (21-32) 04/14/19 10:57 Anion Gap 9 MMOL/L (8-16) 04/14/19 10:57 BUN 7.7 mg/dL (7-18) 04/14/19 10:57 Creatinine 0.7 mg/dL (0.55-1.3) 04/14/19 10:57 Est GFR (CKD-EPI)AfAm 139.73 04/14/19 10:57 Est GFR (CKD-EPI)NonAf 120.56 04/14/19 10:57 Random Glucose 109 mg/dL (74-106) H 04/14/19 10:57 Calcium 9.4 mg/dL (8.5-10.1) 04/14/19 10:57 Total Bilirubin 0.8 mg/dL (0.2-1) 04/14/19 10:57 AST 98 U/L (15-37) H 04/18/19 07:00 ALT 57 U/L (13-61) 04/14/19 10:57 Alkaline Phosphatase 139 U/L (45-117) H 04/14/19 10:57 Total Protein 8.0 g/dl (6.4-8.2) 04/14/19 10:57 Albumin 4.3 g/dl (3.4-5.0) 04/14/19 10:57 RPR Titer Nonreactive (NONREACTIVE) 04/14/19 10:57 Labs noted. Pertinent Admission Physical Exam Findings: withdrawal symptoms. - Treatment Hospital Course: Detox Protocol Followed, Detoxed Safely, Responded well - Medication Discharge Medications: Ambulatory Orders NK [No Known Home Medication] 04/14/19 - Diagnosis (1) Alcohol dependence Status: Chronic (2) Alcohol dependence with withdrawal, uncomplicated Status: Acute (3) Asthma Status: Chronic (4) Cannabis abuse Status: Chronic (5) Cocaine abuse Status: Acute (6) Nicotine dependence Status: Chronic - AMA Did Patient Leave Against Medical Advice: Yes
[2019-04-19] MEDS ORDERED: chlordiazePOXIDE HCL 10 MG CAPSULE PO ONE (05:00)
[2019-04-19] MEDS ORDERED: LORazepam 0.5 MG TABLET PO ONE (05:00)
== END 2019-04-18 08:53 | disposition left against medical advice (07) | DRG 894 ==
LOC: YASAS 08:23 → Y3N 10:23
PROVIDERS: ADMIT Allergy & Immunology; ATTEND Allergy & Immunology
PROC: HZ2ZZZZ Detoxification Services for Substance Abuse Treatment (ICD-10-PCS; principal; 2019-04-14)
DX: F10.230 Alcohol dependence with withdrawal, uncomplicated (principal); F14.20 Cocaine dependence, uncomplicated; F20.0 Paranoid schizophrenia; F19.280 Other psychoactive substance dependence with psychoactive substance-induced anxiety disorder; F12.20 Cannabis dependence, uncomplicated; F17.210 Nicotine dependence, cigarettes, uncomplicated; J45.909 Unspecified asthma, uncomplicated; R94.5 Abnormal results of liver function studies
CPT/HCPCS: 36415; 80053; 84450; 85027; 86593

== ENCOUNTER 2019-10-16 09:21 | Inpatient (IN) | payer OTHER ==
--- NOTE | 2019-10-16 10:34 | BHS.RME ---
Substance Use & Tx History - Substance Use History Alcohol Substance amount: 1-1.5 pints vodka + 3 beers Frequency of use: Daily Substance route: Oral Date of Last Use: 10/16/19 Cocaine- Powder Substance amount: 3 grams Frequency of use: Once a month Date of Last Use: 09/16/19 Marijuana/Hashish Substance amount: 3 blunts Frequency of use: Once a month Date of Last Use: 09/16/19 Physical/Psych/Mental Status - Behavior General Behavior: Increased activity (restlessness, agitation) Eye Contact: Normal - Cooperativeness Cooperativeness: Cooperative - Thinking Thought Processes: Tight, Logical, Goal Directed Thought content: Future oriented - Physical Health Problems Is patient presently having any pain?: No Does patient presently have any injuries (include location): No Does patient currently have a fever: No Is patient : No CIWA Nausea/Vomitin Muscle Tremors: 4-Moderate,w/Arms Extend Anxiety: 4-Mod. Anxious/Guarded Agitation: 4-Moderately Restless Paroxysmal Sweats: 3 Orientation: 0-Oriented Tacttile Disturbances: 0-None Auditory Disturbances: 0-None Visual Disturbances: 0-None Headache: 3-Moderate CIWA-Ar Total Score: 21
[2019-10-16 11:05] VITALS: BMI 19.6
--- NOTE | 2019-10-16 11:55 | HP ---
CIWA Score Nausea/Vomitin Muscle Tremors: 4-Moderate,w/Arms Extend Anxiety: 4-Mod. Anxious/Guarded Agitation: 4-Moderately Restless Paroxysmal Sweats: 3 Orientation: 0-Oriented Tacttile Disturbances: 0-None Auditory Disturbances: 0-None Visual Disturbances: 0-None Headache: 3-Moderate CIWA-Ar Total Score: 21 - Admission Criteria OASAS Guidelines: Admission for Medically Managed Detox: Requires at least one of the followin. CIWA greater than 12 2. Seizures within the past 24 hours 3. Delirium tremens within the past 24 hours 4. Hallucinations within the past 24 hours 5. Acute intervention needed for co occurring medical disorder 6. Acute intervention needed for co occurring psychiatric disorder 7. Severe withdrawal that cannot be handled at a lower level of care (continued vomiting, continued diarrhea, abnormal vital signs) requiring intravenous medication and/or fluids 8. Admitting History and Physical - Admission Chief Complaint: " i just relapsed after 2 weeks. I need help." History of Present Illness: 39 year old male with history of alcohol dependence with withdrawals. He was last here from 07/04-07/09/19 and completed detox followed by rehab at [facility] for only 1 week and then he left and relapsed 2 weeks ago. 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 RAMEZ=0.064 CIWA=21 Patient meets criteria for detox as he has multiple blackouts and has complicating medical disorders with cirrhosis and hepatomegaly. 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 Pulmonary: Yes: Asthma Hepatobiliary: Yes: Cirrhosis Psych: Yes: Schizophrenia - Past Surgical History Past Surgical History: Yes: None - Smoking History Smoking history: Current every day smoker Have you smoked in the past 12 months: No Aproximately how many cigarettes per day: 25 - Alcohol/Substance Use Hx Alcohol Use: Yes History of Substance Use: reports: Cocaine, Marijuana - Social History Usual Living Arrangement: Yes: Alone Do you think of yourself as: Straight/Heterosexual ADL: Support Services Occupation: un employed History of Recent Travel: No Admission [facility] Allergies/Adverse Reactions: Allergies Allergy/AdvReac Type Severity Reaction Status Date / Time No Known Allergies Allergy Verified 10/16/19 11:02 Exam Limitations: No Limitations - Ebola screening Have you traveled outside of the country in the last 21 days: No Have you had contact with anyone from an Ebola affected area: No Have you been sick,other than usual withdrawal symptoms: No Do you have a fever: No - Review of Systems Constitutional: Chills, Diaphoresis EENT: reports: No Symptoms Reported Respiratory: reports: No Symptoms reported Cardiac: reports: No Symptoms Reported GI: reports: No Symptoms Reported : reports: No Symptoms Reported Musculoskeletal: reports: No Symptoms Reported Integumentary: reports: No Symptoms Reported Neuro: reports: Headache, Tingling, Tremors Endocrine: reports: No Symptoms Reported Hematology: reports: No Symptoms Reported Psychiatric: reports: Judgement Intact, Orientated x3, Agitated, Anxious Other Systems: Reviewed and Negative Patient History - Patient Medical History Hx Anemia: No Hx Asthma: Yes (MDI) Hx Chronic Obstructive Pulmonary Disease (COPD): No Hx Cancer: No Hx Cardiac Disorders: No Hx Congestive Heart Failure: No Hx Hypertension: No Hx Hypercholesterolemia: No Hx Pacemaker: No HX Cerebrovascular Accident: No Hx Seizures: No Hx Dementia: No Hx Diabetes: No Hx Gastrointestinal Disorders: No Hx Liver Disease: No Hx Genitourinary Disorders: No Hx Sexually Transmitted Disorders: No Hx Renal Disease (ESRD): No Hx Thyroid Disease: No Hx Human Immunodeficiency Virus (HIV): No (2019 negative) Hx Hepatitis C: No Hx Depression: No Hx Suicide Attempt: No Hx Bipolar Disorder: No Hx Schizophrenia: Yes - Patient Surgical History Past Surgical History: No Hx Neurologic Surgery: No Hx Cataract Extraction: No Hx Cardiac Surgery: No Hx Lung Surgery: No Hx Breast Surgery: No Hx Breast Biopsy: No Hx Abdominal Surgery: No Hx Appendectomy: No Hx Cholecystectomy: No Hx Genitourinary Surgery: No Hx Section: No Hx Orthopedic Surgery: No Anesthesia Reaction: No - PPD History Previous Implant?: Yes Documented Results: Negative w/proof Implanted On Prior [facility] Admission?: Yes Date: 04/16/19 Results: 0MM PPD to be Administered?: No - Smoking Cessation Smoking history: Current every day smoker Have you smoked in the past 12 months: No Aproximately how many cigarettes per day: 25 Cigars Per Day: 0 Hx Chewing Tobacco Use: No Initiated information on smoking cessation: Yes 'Breaking Loose' booklet given: 10/16/19 - Substances abused Alcohol Substance route: Oral Frequency: Daily Amount used: vodka- 1.5pts Age of first use: 17 Date of last use: 10/16/19 Crack Substance route: Inhalation Frequency: Daily Amount used: 3 grams Age of first use: 26 Date of last use: 09/16/19 Marijuana/Hashish Substance route: Smoking Frequency: Daily Amount used: 3 blunts Age of first use: 17 Date of last use: 09/16/19 Admission Physical Exam BHS - Vital Signs Vital Signs: Vital Signs - 24 hr 10/16/19 11:03 Temperature 98.3 F Pulse Rate 122 H Respiratory 18 Rate Blood Pressure 121/86 - Physical General Appearance: Yes: Mild Distress, Alcohol on Breath, Thin, Tremorous, Irritable, Sweating, Anxious HEENTM: Yes: EOMI, Hearing grossly Normal, Normal ENT Inspection, Normocephalic, Normal Voice, AUNDREA, Pharynx Normal, Tm's normal Respiratory: Yes: Chest Non-Tender, Lungs Clear, Normal Breath Sounds, No Respiratory Distress, No Accessory Muscle Use Neck: Yes: No masses,lesions,Nodules, Supple, Trachea in good position Breast: Yes: Within Normal Limits Cardiology: Yes: Regular Rhythm, Regular Rate, S1, S2 Abdominal: Yes: Normal Bowel Sounds, Non Tender, Flat, Soft Genitourinary: Yes: Within Normal Limits Back: Yes: Normal Inspection Musculoskeletal: Yes: full range of Motion, Gait Steady, Pelvis Stable Extremities: Yes: Normal Capillary Refill, Normal Inspection, Normal Range of Motion, Non-Tender Neurological: Yes: 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, Fully Oriented, Alert, Motor Strength 5/5, Normal Mood/Affect, Normal Response Integumentary: Yes: Normal Color, Dry, Warm Cleared for Admission BHS - Detox or Rehab S Level of Care: Medically Managed Detox Regimen/Protocol: Ativan Claeared for Rehab Admission: No Screened but not Admitted - Documentation of Visit Screened but not Admitted: No Breathalyzer - Breathalyzer Breathalyzer: 0.064 Vital Signs - Vital Signs Vital signs refused: No Temperature: 98.3 F Temperature source: Oral Pulse Rate: 122 Respiratory Rate: 18 Blood Pressure: 121/86 BP Location: Left Arm Blood Pressure position: Sitting - Height Height: 5 ft 9 in - Weight Weight: 133 lb Weight measurement method: Standing scale - BMI Body Mass Index (BMI): 19.6 - Bowel Function Bowel Movement: No Urine Drug Screen - Test Device Lot number: [id number] Expiration date: 06/02/21 - Control Is test valid?: Yes - Results Drug screen NEGATIVE: Yes Inpatient Rehab Admission - Rehab Decision to Admit Inpatient rehab admission?: No
[2019-10-16] MEDS ORDERED: MAG HYDROX/AL HYDROX/SIMETH 30 ML UNIT-DOSE CUP PO PRN (12:03)
[2019-10-16] MEDS ORDERED: BISMUTH SUBSALICYLATE 524 MG/30 ML UD PO PRN (12:03)
[2019-10-16] MEDS ORDERED: ACETAMINOPHEN 325 MG TABLET (FP) PO PRN ×2 (12:03)
[2019-10-16] MEDS ORDERED: MAGNESIUM CITRATE 300 ML BOTTLE PO PRN (12:03)
[2019-10-16] MEDS ORDERED: MENTHOL/PHENOL 1 EACH UD MM PRN (12:03)
[2019-10-16] MEDS ORDERED: LORazepam 1 MG TABLET PO PRN (12:03)
[2019-10-16] MEDS ORDERED: IBUPROFEN 400 MG TABLET (FP) PO PRN (12:03)
[2019-10-16] MEDS ORDERED: METHOCARBAMOL 500 MG TABLET PO PRN (12:03)
[2019-10-16] MEDS ORDERED: MAGNESIUM HYDROX 2400MG/30ML ORAL SUSPENSION 30 ML CUP PO PRN (12:03)
[2019-10-16] MEDS ORDERED: ALBUTEROL SO4 HFA INHALER IH PRN (12:04)
[2019-10-16] MEDS: LORazepam 2 MG TABLET PO SCH ×3 (12:30→23:50)
[2019-10-16] MEDS ORDERED: ONDANSETRON *ODT* 4 MG TABLET SL ONE (12:30)
[2019-10-16] MEDS: PRENATAL VITAMINS W/ FOLIC ACID TABLET (FP) PO SCH (12:30)
[2019-10-16] MEDS: NICOTINE 7 MG/24 HOURS TOPICAL PATCH TD SCH (12:31)
[2019-10-16] MEDS: NICOTINE POLACRILEX 2 MG GUM BUC PRN ×4 (13:12→19:47)
--- NOTE | 2019-10-16 14:14 | CONSULT ---
[facility] Psychiatric Consult - Data Date of interview: 10/16/19 Admission source: Self-referred Identifying data: Mr Salvador is a 39 years old single male, unemployed receiving SSI, domiciled seeking detox treatment for alcohol, cocaine and cannabis Substance Abuse History: Reports history of alcohol, cocaine and marijuana use. Refer to addiction counselor's summary for further information Medical History: Significant for bronchial asthma and cirrhosis of the liver. Smokes 25 cigaettes daily Psychiatric History: Patient is known for three previous admission to this facility. Historical narrative remains consistent. Reports that his first psychiatric contact occured in 2000 when he began to hear voices and feeling paranoid. He said that he was admitted to a facility in [facility] and started on psychotropic medications. Reports multiple subsequent psychiatric hospitalizations at various facilities including , [facility]), [facility], [facility] and most recently [facility] in [place], [place]. Reports receiving outpatient psychiatric treatment at [facility] and he is prescribed Invega Sustena 156 mg IM Q montly. Reports that he received last Invega Sustena injection on 10/06/19. Denies previous suicidal attempt. At present, denies experiencing psychotic symptoms, S/H ideation. Physical/Sexual Abuse/Trauma History: Denies history of abuse as a child or DV relationship as an adult Mental Status Exam - Mental Status Exam Alert and Oriented to: Time, Place, Person Cognitive Function: Fair Patient Appearance: Well Groomed Mood: Hopeful, Euthymic Patient Behavior: Cooperative Speech Pattern: Clear Voice Loudness: Normal Thought Process: Intact, Goal Oriented Hallucinations: Denies Suicidal Ideation: Denies Homicidal Ideation: Denies Insight/Judgement: Poor Sleep: Well Appetite: Poor Muscle strength/Tone: Normal Gait/Station: Normal Psychiatric Findings - Problem List ([place] 1, 2,3) (1) Paranoid schizophrenia Current Visit: No Status: Chronic (2) Alcohol dependence with withdrawal, uncomplicated Current Visit: No Status: Acute (3) Cocaine dependence Current Visit: Yes Status: Acute (4) Cannabis dependence Current Visit: No Status: Acute (5) Nicotine dependence Current Visit: No Status: Chronic Qualifiers: Nicotine product type: cigarettes Substance use status: in withdrawal Qualified Code(s): F17.213 - Nicotine dependence, cigarettes, with withdrawal (6) Athletes foot Current Visit: No Status: Chronic (7) Asthma Current Visit: No Status: Chronic Qualifiers: Asthma severity: mild Asthma persistence: intermittent Asthma complication type: with status asthmaticus Qualified Code(s): J45.22 - Mild intermittent asthma with status asthmaticus (8) Cirrhosis of liver Current Visit: Yes Status: Chronic - Initial Treatment Plan Initial Treatment Plan: Continue inpatient detoxification
[2019-10-16] MEDS: hydrOXYzine PAMOATE 25 MG CAPSULE (FP) PO SCH ×3 (14:33→23:50)
[2019-10-16 15:00] LABS: HEMOGLOBIN 13.5 GM/dL (11.7-16.9); MCH 33.7 pg (25.7-33.7); MCHC 33.7 g/dl (32.0-35.9); MEAN CELL VOLUME 99.9 fl (80-96); MEAN PLT VOLUME 7.3 fl (7.5-11.1); PLATELET COUNT 194 K/MM3 (134-434); RDW 17.7 % (11.9-15.9); WHITE BLOOD COUNT 3.5 K/mm3 (4.0-10.0)
[2019-10-16 15:17] LABS: ALBUMIN 4.3 g/dl (3.4-5.0); BILIRUBIN,TOTAL 1.4 mg/dL (0.2-1); CALCIUM 9.1 mg/dL (8.5-10.1); CREATININE 0.8 mg/dL (0.55-1.3); POTASSIUM 3.7 mmol/L (3.5-5.1); TOT PROT 7.8 g/dl (6.4-8.2)
[2019-10-16] MEDS: THIAMINE HCL 100 MG TABLET (FP) PO SCH (23:52)
[2019-10-16] MEDS: MELATONIN 5 MG TABLETS PO SCH (23:52)
[2019-10-17] MEDS: NICOTINE POLACRILEX 2 MG GUM BUC PRN ×5 (03:59→20:14)
[2019-10-17] MEDS: LORazepam 2 MG TABLET PO SCH ×4 (05:29→21:59)
[2019-10-17] MEDS: hydrOXYzine PAMOATE 25 MG CAPSULE (FP) PO SCH ×5 (05:29→21:59)
[2019-10-17] MEDS: PRENATAL VITAMINS W/ FOLIC ACID TABLET (FP) PO SCH (10:02)
[2019-10-17] MEDS: NICOTINE 7 MG/24 HOURS TOPICAL PATCH TD SCH (10:02)
--- NOTE | 2019-10-17 12:30 | PN ---
[facility] CIWA - CIWA Score Nausea/Vomitin-No Nausea/No Vomiting Muscle Tremors: 3 Anxiety: 3 Agitation: 2 Paroxysmal Sweats: 2 Orientation: 0-Oriented Tacttile Disturbances: 0-None Auditory Disturbances: 2-Mild Harshness/Frighten Visual Disturbances: 1-Very Mild Sensitivity Headache: 0-None Present CIWA-Ar Total Score: 13 S Progress Note (SOAP) Subjective: Complaints of anxiety, tremors,agitations,sweats auditory and visual disturbances Objective: 10/17/19 12:28 Vital Signs 10/17/19 10/17/19 10/17/19 05:14 06:42 08:47 Temperature 97.7 F 97.3 F L Pulse Rate 74 77 93 H Respiratory 16 18 Rate Blood Pressure 140/99 146/105 H 138/90 O2 Sat by Pulse 100 Oximetry (%) Laboratory Last Values WBC 3.5 K/mm3 (4.0-10.0) L 10/16/19 12:00 RBC 4.00 M/mm3 (4.00-5.60) 10/16/19 12:00 Hgb 13.5 GM/dL (11.7-16.9) 10/16/19 12:00 Hct 40.0 % (35.4-49) 10/16/19 12:00 MCV 99.9 fl (80-96) H 10/16/19 12:00 MCH 33.7 pg (25.7-33.7) 10/16/19 12:00 MCHC 33.7 g/dl (32.0-35.9) 10/16/19 12:00 RDW 17.7 % (11.9-15.9) H 10/16/19 12:00 Plt Count 194 K/MM3 (134-434) D 10/16/19 12:00 MPV 7.3 fl (7.5-11.1) L D 10/16/19 12:00 Sodium 138 mmol/L (136-145) 10/16/19 12:00 Potassium 3.7 mmol/L (3.5-5.1) 10/16/19 12:00 Chloride 100 mmol/L (98-107) 10/16/19 12:00 Carbon Dioxide 27 mmol/L (21-32) 10/16/19 12:00 Anion Gap 10 MMOL/L (8-16) 10/16/19 12:00 BUN 8.0 mg/dL (7-18) 10/16/19 12:00 Creatinine 0.8 mg/dL (0.55-1.3) 10/16/19 12:00 Est GFR (CKD-EPI)AfAm 131.34 10/16/19 12:00 Est GFR (CKD-EPI)NonAf 113.32 10/16/19 12:00 Random Glucose 139 mg/dL (74-106) H 10/16/19 12:00 Calcium 9.1 mg/dL (8.5-10.1) 10/16/19 12:00 Total Bilirubin 1.4 mg/dL (0.2-1) H 10/16/19 12:00 AST 162 U/L (15-37) H 10/16/19 12:00 ALT 46 U/L (13-61) 10/16/19 12:00 Alkaline Phosphatase 94 U/L (45-117) 10/16/19 12:00 Total Protein 7.8 g/dl (6.4-8.2) 10/16/19 12:00 Albumin 4.3 g/dl (3.4-5.0) 10/16/19 12:00 Syphilis Serology Non-reactive (NONREACTIVE) 10/16/19 12:00 COVID-19 (ANTONIO) Not detected (Not Detected) 10/16/19 12:00 Labs noted with elevated AST, and total Bilirubin. Assessment: 10/17/19 12:30 Alert and oriented x 3, in no acute respiratory distress. Full ROM, ambulating in the unit without assistance. Withdrawal symptoms. Elevated AST and total Bilirubin. Plan: Continue detox protocol.
[2019-10-17] MEDS: MELATONIN 5 MG TABLETS PO SCH (21:59)
[2019-10-17] MEDS: THIAMINE HCL 100 MG TABLET (FP) PO SCH (21:59)
[2019-10-18] MEDS ORDERED: LORazepam 1 MG TABLET PO SCH (05:00)
[2019-10-18] MEDS: hydrOXYzine PAMOATE 25 MG CAPSULE (FP) PO SCH (05:00)
[2019-10-18] MEDS: NICOTINE POLACRILEX 2 MG GUM BUC PRN ×2 (05:01→07:08)
[2019-10-18 06:21] VITALS: TEMP 97.9
[2019-10-18 06:22] VITALS: BP 132/91; PULSE 73
--- NOTE | 2019-10-18 11:22 | DS ---
[facility] Detox Discharge Summary Admission Date: 10/16/19 Discharge Date: 10/18/19 - History Present History: Alcohol Dependence, Cannabis Dependence, Cocaine Dependence Additional Comments: Patient was seen and examined at bedside. Alert and oriented x 3, in no acute respiratory distress. Skin warm to touch. Full ROM, ambulatory without assistance. Detox protocol not completed, patient insisting on leave now despite encouragement. stating "I want to go right now." Pertinent Past History: History of Cirrhosis, alcohol, cocaine, cannabis and nicotine use disorder. - Physical Exam Results Vital Signs: Vital Signs Temperature 97.9 F 10/18/19 04:54 Pulse Rate 73 10/18/19 04:54 Respiratory Rate 16 10/18/19 04:54 Blood Pressure 132/91 10/18/19 04:54 O2 Sat by Pulse Oximetry (%) 100 10/18/19 04:54 Vital Signs 10/18/19 04:54 Temperature 97.9 F Pulse Rate 73 Respiratory 16 Rate Blood Pressure 132/91 O2 Sat by Pulse 100 Oximetry (%) Laboratory Last Values WBC 3.5 K/mm3 (4.0-10.0) L 10/16/19 12:00 RBC 4.00 M/mm3 (4.00-5.60) 10/16/19 12:00 Hgb 13.5 GM/dL (11.7-16.9) 10/16/19 12:00 Hct 40.0 % (35.4-49) 10/16/19 12:00 MCV 99.9 fl (80-96) H 10/16/19 12:00 MCH 33.7 pg (25.7-33.7) 10/16/19 12:00 MCHC 33.7 g/dl (32.0-35.9) 10/16/19 12:00 RDW 17.7 % (11.9-15.9) H 10/16/19 12:00 Plt Count 194 K/MM3 (134-434) D 10/16/19 12:00 MPV 7.3 fl (7.5-11.1) L D 10/16/19 12:00 Sodium 138 mmol/L (136-145) 10/16/19 12:00 Potassium 3.7 mmol/L (3.5-5.1) 10/16/19 12:00 Chloride 100 mmol/L (98-107) 10/16/19 12:00 Carbon Dioxide 27 mmol/L (21-32) 10/16/19 12:00 Anion Gap 10 MMOL/L (8-16) 10/16/19 12:00 BUN 8.0 mg/dL (7-18) 10/16/19 12:00 Creatinine 0.8 mg/dL (0.55-1.3) 10/16/19 12:00 Est GFR (CKD-EPI)AfAm 131.34 10/16/19 12:00 Est GFR (CKD-EPI)NonAf 113.32 10/16/19 12:00 Random Glucose 139 mg/dL (74-106) H 10/16/19 12:00 Calcium 9.1 mg/dL (8.5-10.1) 10/16/19 12:00 Total Bilirubin 1.4 mg/dL (0.2-1) H 10/16/19 12:00 AST 162 U/L (15-37) H 10/16/19 12:00 ALT 46 U/L (13-61) 10/16/19 12:00 Alkaline Phosphatase 94 U/L (45-117) 10/16/19 12:00 Total Protein 7.8 g/dl (6.4-8.2) 10/16/19 12:00 Albumin 4.3 g/dl (3.4-5.0) 10/16/19 12:00 Syphilis Serology Non-reactive (NONREACTIVE) 10/16/19 12:00 COVID-19 (ANTONIO) Not detected (Not Detected) 10/16/19 12:00 Labs noted. Pertinent Admission Physical Exam Findings: Withdrawal symptoms. - Treatment Hospital Course: Detox Protocol Followed - Medication Discharge Medications: Ambulatory Orders Albuterol Sulfate Inhaler - [Ventolin HFA Inhaler -] 1 inh PO Q4H PRN #1 inhaler 07/09/19 Paliperidone Palmitate [Invega Sustenna] 156 mg IM MONTHLY 10/16/19 - Diagnosis (1) Alcohol dependence with withdrawal, uncomplicated Status: Acute (2) Cannabis dependence Status: Chronic (3) Cocaine dependence Status: Chronic (4) Cirrhosis of liver Status: Chronic (5) Nicotine dependence Status: Chronic Qualifiers: Nicotine product type: cigarettes Substance use status: in withdrawal Qualified Code(s): F17.213 - Nicotine dependence, cigarettes, with withdrawal - AMA Did Patient Leave Against Medical Advice: Yes CIWA Score - CIWA Score Nausea/Vomitin-No Nausea/No Vomiting Muscle Tremors: 2 Anxiety: 3 Agitation: 2 Paroxysmal Sweats: 2 Orientation: 0-Oriented Tacttile Disturbances: 0-None Auditory Disturbances: 0-None Visual Disturbances: 1-Very Mild Sensitivity Headache: 0-None Present CIWA-Ar Total Score: 10
[2019-10-19] MEDS ORDERED: LORazepam 0.5 MG TABLET PO PRN
[2019-10-19] MEDS ORDERED: LORazepam 0.5 MG TABLET PO SCH (05:00)
[2019-10-20] MEDS ORDERED: LORazepam 0.5 MG TABLET PO ONE (05:00)
== END 2019-10-18 09:29 | disposition left against medical advice (07) | DRG 894 ==
LOC: YASAS 09:21 → Y6N 11:25
PROVIDERS: ADMIT Allergy & Immunology; ATTEND Allergy & Immunology
PROC: HZ2ZZZZ Detoxification Services for Substance Abuse Treatment (ICD-10-PCS; principal; 2019-10-16)
DX: F10.230 Alcohol dependence with withdrawal, uncomplicated (principal); F14.20 Cocaine dependence, uncomplicated; F20.0 Paranoid schizophrenia; F12.20 Cannabis dependence, uncomplicated; F17.213 Nicotine dependence, cigarettes, with withdrawal; E80.6 Other disorders of bilirubin metabolism; K74.60 Unspecified cirrhosis of liver; B35.3 Tinea pedis; J45.909 Unspecified asthma, uncomplicated; R74.0 Nonspecific elevation of levels of transaminase and lactic acid dehydrogenase [LDH]
CPT/HCPCS: 36415; 80053; 85027; 86780; U0003

== ENCOUNTER 2020-08-22 09:58 | Inpatient (IN) | payer OTHER ==
[2020-08-22 10:36] VITALS: BMI 18.1
[2020-08-22] MEDS ORDERED: IBUPROFEN 400 MG TABLET (FP) PO PRN (11:10)
[2020-08-22] MEDS ORDERED: MAGNESIUM HYDROX 2400MG/30ML ORAL SUSPENSION 30 ML CUP PO PRN (11:10)
[2020-08-22] MEDS ORDERED: BISMUTH SUBSALICYLATE 262 MG/15 ML BTL PO PRN (11:10)
[2020-08-22] MEDS ORDERED: MAG HYDROX/AL HYDROX/SIMETH 30 ML UNIT-DOSE CUP PO PRN (11:10)
[2020-08-22] MEDS ORDERED: MENTHOL/PHENOL 1 EACH UD MM PRN (11:10)
[2020-08-22] MEDS ORDERED: MAGNESIUM CITRATE 300 ML BOTTLE PO PRN (11:10)
[2020-08-22] MEDS ORDERED: ACETAMINOPHEN 325 MG TABLET (FP) PO PRN ×2 (11:10)
[2020-08-22] MEDS: LORazepam 2 MG TABLET PO SCH ×3 (12:18→23:07)
[2020-08-22] MEDS: ONDANSETRON *ODT* 4 MG TABLET SL PRN (12:18)
[2020-08-22] MEDS: PRENATAL VITAMINS W/ FOLIC ACID TABLET (FP) PO SCH (12:22)
[2020-08-22 13:05] LABS: HEMOGLOBIN 12.8 GM/dL (11.7-16.9); MCH 33.3 pg (25.7-33.7); MCHC 34.7 g/dl (32.0-35.9); MEAN CELL VOLUME 96.2 fl (80-96); MEAN PLT VOLUME 7.5 fl (7.5-11.1); PLATELET COUNT 110 10^3/uL (134-434); RBC 3.84 M/mm3 (4.00-5.60); RDW 13.1 % (11.9-15.9); WHITE BLOOD COUNT 4.5 K/mm3 (4.0-10.0)
[2020-08-22 13:10] LABS: CHLORIDE 93 mmol/L (98-107); SODIUM 135 mmol/L (136-145)
[2020-08-22 13:15] LABS: ALBUMIN 4.5 g/dl (3.4-5.0); BLOOD UREA NITROGEN 5.9 mg/dL (7-18); CALCIUM 8.4 mg/dL (8.5-10.1); CO2 30 mmol/L (21-32)
[2020-08-22 13:16] LABS: GLUCOSE,RANDOM 74 mg/dL (74-106)
[2020-08-22 13:18] LABS: SGPT/ALT 227 U/L (13-61)
[2020-08-22 13:19] LABS: BILIRUBIN,TOTAL 1.7 mg/dL (0.2-1); CREATININE 0.5 mg/dL (0.55-1.3); TOT PROT 7.8 g/dl (6.4-8.2)
[2020-08-22 13:21] LABS: ALK PHOS 172 U/L (45-117)
[2020-08-22] MEDS: hydrOXYzine PAMOATE 25 MG CAPSULE (FP) PO SCH ×3 (13:23→23:07)
[2020-08-22] MEDS: NICOTINE POLACRILEX 2 MG GUM BUC PRN (13:24)
[2020-08-22 13:33] LABS: ANION GAP 11 MMOL/L (8-16); SGOT/AST 1408 U/L (15-37)
[2020-08-22] MEDS: METHOCARBAMOL 500 MG TABLET PO PRN (14:24)
[2020-08-22] MEDS ORDERED: MELATONIN 5 MG TABLETS PO SCH (22:00)
[2020-08-22] MEDS: THIAMINE HCL 100 MG TABLET (FP) PO SCH (23:07)
[2020-08-23] MEDS: METHOCARBAMOL 500 MG TABLET PO PRN ×3 (03:19→15:34)
[2020-08-23] MEDS: LORazepam 1 MG TABLET PO PRN ×3 (03:19→19:28)
[2020-08-23] MEDS: LORazepam 2 MG TABLET PO SCH ×4 (06:28→22:07)
[2020-08-23] MEDS: NICOTINE POLACRILEX 2 MG GUM BUC PRN ×7 (06:30→21:37)
[2020-08-23] MEDS: hydrOXYzine PAMOATE 25 MG CAPSULE (FP) PO SCH ×5 (06:30→22:07)
[2020-08-23] MEDS: NICOTINE 21 MG/24 HOURS TOPICAL PATCH TD SCH (10:04)
[2020-08-23] MEDS: PRENATAL VITAMINS W/ FOLIC ACID TABLET (FP) PO SCH (10:04)
[2020-08-23] MEDS: ONDANSETRON *ODT* 4 MG TABLET SL PRN (10:07)
[2020-08-23] MEDS ORDERED: POTASSIUM CHLORIDE ORAL LIQUID 20 MEQ/15 ML PO ONE ×2 (11:00→15:00)
[2020-08-23] MEDS: FAMOTIDINE 20 MG TABLET PO SCH ×2 (11:38→22:07)
[2020-08-23] MEDS: THIAMINE HCL 100 MG TABLET (FP) PO SCH (22:08)
[2020-08-23] MEDS: MELATONIN 5 MG TABLETS PO PRN (22:09)
[2020-08-24] MEDS: METHOCARBAMOL 500 MG TABLET PO PRN (03:17)
[2020-08-24] MEDS: LORazepam 1 MG TABLET PO PRN ×3 (03:17→19:33)
[2020-08-24] MEDS: NICOTINE POLACRILEX 2 MG GUM BUC PRN ×5 (03:18→19:34)
[2020-08-24] MEDS: LORazepam 1 MG TABLET PO SCH ×4 (06:19→22:27)
[2020-08-24] MEDS: hydrOXYzine PAMOATE 25 MG CAPSULE (FP) PO SCH ×2 (06:19→11:12)
[2020-08-24] MEDS: PRENATAL VITAMINS W/ FOLIC ACID TABLET (FP) PO SCH (10:20)
[2020-08-24] MEDS: FAMOTIDINE 20 MG TABLET PO SCH ×2 (10:20→22:28)
[2020-08-24] MEDS: NICOTINE 21 MG/24 HOURS TOPICAL PATCH TD SCH (10:23)
[2020-08-24] MEDS: THIAMINE HCL 100 MG TABLET (FP) PO SCH (22:28)
[2020-08-24] MEDS: MELATONIN 5 MG TABLETS PO PRN (22:28)
[2020-08-25] MEDS: LORazepam 0.5 MG TABLET PO SCH ×4 (05:27→22:08)
[2020-08-25] MEDS: NICOTINE POLACRILEX 2 MG GUM BUC PRN ×7 (06:10→22:09)
[2020-08-25] MEDS: LORazepam 0.5 MG TABLET PO PRN ×2 (08:15→13:59)
[2020-08-25] MEDS: LACTULOSE 20 GM/30 ML UDC (FOR ORAL USE ONLY) PO SCH ×4 (10:09→22:08)
[2020-08-25] MEDS: FAMOTIDINE 20 MG TABLET PO SCH ×2 (10:10→22:08)
[2020-08-25] MEDS: PRENATAL VITAMINS W/ FOLIC ACID TABLET (FP) PO SCH (10:11)
[2020-08-25] MEDS: NICOTINE 21 MG/24 HOURS TOPICAL PATCH TD SCH (10:11)
[2020-08-25 11:06] LABS: SGOT/AST 238 U/L (15-37); SGPT/ALT 106 U/L (13-61)
[2020-08-25] MEDS: ONDANSETRON *ODT* 4 MG TABLET SL PRN (11:27)
[2020-08-25] MEDS: THIAMINE HCL 100 MG TABLET (FP) PO SCH (22:08)
[2020-08-25] MEDS: MELATONIN 5 MG TABLETS PO PRN (22:09)
[2020-08-26] MEDS: ONDANSETRON *ODT* 4 MG TABLET SL PRN (03:28)
[2020-08-26] MEDS ORDERED: LORazepam 0.5 MG TABLET PO ONE (05:00)
[2020-08-26] MEDS: NICOTINE POLACRILEX 2 MG GUM BUC PRN (05:09)
[2020-08-26] MEDS: PRENATAL VITAMINS W/ FOLIC ACID TABLET (FP) PO SCH (09:19)
[2020-08-26] MEDS: FAMOTIDINE 20 MG TABLET PO SCH (09:19)
[2020-08-26] MEDS: NICOTINE 21 MG/24 HOURS TOPICAL PATCH TD SCH (09:19)
[2020-08-26] MEDS: LACTULOSE 20 GM/30 ML UDC (FOR ORAL USE ONLY) PO SCH (09:19)
[2020-08-26 09:21] VITALS: BP 100/60; PULSE 88; TEMP 98.1
== END 2020-08-26 09:38 | disposition home or self-care (01) | DRG 897 ==
LOC: YASAS 09:58 → Y6N 11:26
PROVIDERS: ADMIT Allergy & Immunology; ATTEND Allergy & Immunology
PROC: HZ2ZZZZ Detoxification Services for Substance Abuse Treatment (ICD-10-PCS; principal; 2020-08-22)
DX: F10.230 Alcohol dependence with withdrawal, uncomplicated (principal); F19.282 Other psychoactive substance dependence with psychoactive substance-induced sleep disorder; F20.0 Paranoid schizophrenia; E72.20 Disorder of urea cycle metabolism, unspecified; G93.49 Other encephalopathy; F14.10 Cocaine abuse, uncomplicated; F12.10 Cannabis abuse, uncomplicated; F16.10 Hallucinogen abuse, uncomplicated; F17.213 Nicotine dependence, cigarettes, with withdrawal; F19.24 Other psychoactive substance dependence with psychoactive substance-induced mood disorder; I10 Essential (primary) hypertension; J45.20 Mild intermittent asthma, uncomplicated; E78.5 Hyperlipidemia, unspecified; E87.6 Hypokalemia; R79.89 Other specified abnormal findings of blood chemistry; R00.0 Tachycardia, unspecified
CPT/HCPCS: 36415; 80053; 82140; 84132; 84450; 84460; 85027; 86780; C9803; Q0162; U0003; U0005

== ENCOUNTER 2020-08-22 16:10 | Emergency (ER) | payer OTHER ==
[2020-08-22 16:32] VITALS: BMI 18.1
[2020-08-22] MEDS ORDERED: POTASSIUM CHLORIDE TABS 20 MEQ TABLET.ER (FP) PO ONE ×4 (16:59→18:45)
[2020-08-22 17:40] LABS: BASO % 1.4 % (0-2.0); EOS % 5.5 % (0-4.5); HEMATOCRIT 36.9 % (35.4-49); HEMOGLOBIN 12.8 GM/dL (11.7-16.9); LYMPH % 29.5 % (8-40); MCHC 34.8 g/dl (32.0-35.9); MEAN CELL VOLUME 94.9 fl (80-96); MEAN PLT VOLUME 7.6 fl (7.5-11.1); MONO % 3.9 % (3.8-10.2); NEUT % 59.7 % (42.8-82.8); PLATELET COUNT 110 10^3/uL (134-434); RBC 3.89 M/mm3 (4.00-5.60); RDW 13.2 % (11.9-15.9); WHITE BLOOD COUNT 4.4 K/mm3 (4.0-10.0)
[2020-08-22 17:56] LABS: CHLORIDE 95 mmol/L (98-107); SODIUM 135 mmol/L (136-145)
[2020-08-22 17:58] LABS: CALCIUM 8.4 mg/dL (8.5-10.1)
[2020-08-22 17:59] LABS: ALBUMIN 4.4 g/dl (3.4-5.0); ANION GAP 9 MMOL/L (8-16); BLOOD UREA NITROGEN 7.5 mg/dL (7-18); CO2 30 mmol/L (21-32); GLUCOSE,RANDOM 99 mg/dL (74-106)
[2020-08-22 18:00] LABS: MAGNESIUM 1.4 mg/dL (1.8-2.4)
[2020-08-22 18:02] LABS: CREATININE 0.6 mg/dL (0.55-1.3); SGPT/ALT 223 U/L (13-61)
[2020-08-22 18:04] LABS: BILIRUBIN,TOTAL 1.7 mg/dL (0.2-1); TOT PROT 7.7 g/dl (6.4-8.2)
[2020-08-22 18:05] LABS: ALK PHOS 184 U/L (45-117)
[2020-08-22] MEDS ORDERED: MAGNESIUM SULF 50% (8.12 MEQ/2 ML-1 GM VIAL) IVPB ONE (18:16)
[2020-08-22] MEDS ORDERED: MAGNESIUM OXIDE 400 MG TABLET (FP) PO ONE (18:17)
[2020-08-22 18:28] LABS: SGOT/AST 1364 U/L (15-37)
[2020-08-22] MEDS ORDERED: MAGNESIUM OXIDE 400 MG TABLET (FP) ONE (18:46)
[2020-08-22] MEDS ORDERED: LORazepam 2 MG TABLET PO STA (20:05)
[2020-08-22] MEDS ORDERED: LORazepam 0.5 MG TABLET ONE (20:10)
[2020-08-23] MEDS ORDERED: LORazepam 0.5 MG TABLET ONE (01:00)
[2020-08-23] MEDS ORDERED: LORazepam 2 MG TABLET PO STA (01:01)
[2020-08-23 01:29] VITALS: BP 152/95; PULSE 77; TEMP 97.9
== END 2020-08-23 02:42 | disposition home or self-care (01) ==
LOC: JER 16:10
DX: E87.6 Hypokalemia (principal); E83.42 Hypomagnesemia
CPT/HCPCS: 36415; 80053; 83735; 84484; 85025; 93005; 93010; 99284-25

== ENCOUNTER 2022-04-23 16:12 | Inpatient (IN) | payer OTHER ==
[2022-04-23 16:41] VITALS: BMI 18.3
[2022-04-23] MEDS ORDERED: POLYETHYLENE GLYCOL (HEALTHYLAX) 3350 17 GM PACKET PO PRN (19:05)
[2022-04-23] MEDS ORDERED: ONDANSETRON *ODT* 4 MG TABLET SL PRN (19:05)
[2022-04-23] MEDS ORDERED: BENZOCAINE/MENTHOL (CHLORASEPTIC ) LOZENGE MM PRN (19:05)
[2022-04-23] MEDS ORDERED: LOPERAMIDE HCL 2 MG CAPSULE PO PRN (19:05)
[2022-04-23] MEDS ORDERED: MAG HYDROX/AL HYDROX/SIMETH 30 ML UNIT-DOSE CUP PO PRN (19:05)
[2022-04-23] MEDS ORDERED: BISMUTH SUBSALICYLATE 524 MG/30 ML PO PRN (19:05)
[2022-04-23] MEDS ORDERED: ACETAMINOPHEN 325 MG TABLET (FP) PO PRN ×2 (19:05)
[2022-04-23] MEDS ORDERED: MELATONIN 5 MG TABLETS PO PRN (19:05)
[2022-04-23] MEDS ORDERED: P-EPHED 60MG/TRIPROLIDI 2.5MG TABLET PO PRN (19:05)
[2022-04-23] MEDS ORDERED: MAGNESIUM HYDROX 2400MG/30ML ORAL SUSPENSION 30 ML CUP PO PRN (19:05)
[2022-04-23] MEDS ORDERED: IBUPROFEN 600 MG TABLET (FP) PO PRN (19:05)
[2022-04-23] MEDS ORDERED: METHOCARBAMOL 500 MG TABLET PO PRN (19:05)
[2022-04-23] MEDS ORDERED: guaiFENesin 200 MG/10 ML 10 ML UNIT-DOSE CUPS PO PRN (19:05)
[2022-04-23] MEDS ORDERED: IBUPROFEN 400 MG TABLET (FP) PO PRN (19:05)
[2022-04-23] MEDS ORDERED: DICYCLOMINE HCL 10 MG CAPSULE PO PRN (19:05)
[2022-04-23] MEDS ORDERED: chlordiazePOXIDE HCL 25 MG CAPSULE PO PRN (19:07)
[2022-04-23] MEDS ORDERED: THIAMINE HCL 100 MG TABLET (FP) PO SCH (22:00)
[2022-04-23] MEDS: chlordiazePOXIDE HCL 25 MG CAPSULE PO SCH (23:04)
[2022-04-23] MEDS: NICOTINE POLACRILEX 2 MG GUM BUC PRN (23:08)
[2022-04-23] MEDS: ALBUTEROL SO4 HFA INHALER IH SCH (23:29)
[2022-04-24] MEDS: propRANOLol HCL 10 MG TABLET PO SCH ×2 (00:57→10:18)
[2022-04-24] MEDS: ALBUTEROL SO4 HFA INHALER IH SCH ×3 (04:54→11:13)
[2022-04-24] MEDS: chlordiazePOXIDE HCL 25 MG CAPSULE PO SCH ×2 (05:25→10:18)
[2022-04-24] MEDS: NICOTINE POLACRILEX 2 MG GUM BUC PRN ×4 (08:06→14:34)
[2022-04-24 09:44] VITALS: TEMP 97.7
[2022-04-24] MEDS ORDERED: FAMOTIDINE 20 MG TABLET PO SCH (10:00)
[2022-04-24] MEDS ORDERED: PRENATAL VITAMINS W/ FOLIC ACID TABLET (FP) PO SCH (10:00)
[2022-04-24] MEDS ORDERED: ALBUTEROL SO4 HFA INHALER IH PRN (11:14)
[2022-04-24 12:10] LABS: HEMATOCRIT 37.9 % (35.4-49); MCH 33.4 pg (25.7-33.7); MCHC 34.3 g/dl (32.0-35.9); MEAN CELL VOLUME 97.4 fl (80-96); MEAN PLT VOLUME 7.3 fl (7.5-11.1); PLATELET COUNT 155 10^3/uL (134-434); RBC 3.89 M/mm3 (4.00-5.60); RDW 14.2 % (11.9-15.9); WHITE BLOOD COUNT 4.3 K/mm3 (4.0-10.0)
[2022-04-24] MEDS ORDERED: POTASSIUM CHLORIDE ORAL LIQUID 20 MEQ/15 ML PO ONE (12:13)
[2022-04-24 12:15] LABS: ALBUMIN 4.3 g/dl (3.4-5.0); CALCIUM 9.9 mg/dL (8.5-10.1)
[2022-04-24 12:16] LABS: BLOOD UREA NITROGEN 9.2 mg/dL (7-18)
[2022-04-24 12:18] LABS: CREATININE 0.8 mg/dL (0.55-1.3)
[2022-04-24 12:20] LABS: BILIRUBIN,TOTAL 1.5 mg/dL (0.2-1); TOT PROT 7.9 g/dl (6.4-8.2)
[2022-04-24 13:42] VITALS: BP 130/96; PULSE 70; RESP 18
[2022-04-24] MEDS ORDERED: LORazepam 1 MG TABLET PO PRN (14:46)
[2022-04-24] MEDS ORDERED: LORazepam 2 MG TABLET PO SCH (17:00)
[2022-04-24] MEDS ORDERED: LACTULOSE 20 GM/30 ML UDC (FOR ORAL USE ONLY) PO SCH (18:00)
[2022-04-24] MEDS ORDERED: POTASSIUM CHLORIDE ORAL LIQUID 20 MEQ/15 ML PO SCH (22:00)
[2022-04-25] MEDS ORDERED: chlordiazePOXIDE HCL 25 MG CAPSULE PO SCH (05:00)
[2022-04-26] MEDS ORDERED: chlordiazePOXIDE HCL 10 MG CAPSULE PO PRN
[2022-04-26] MEDS ORDERED: LORazepam 1 MG TABLET PO SCH (05:00)
[2022-04-26] MEDS ORDERED: chlordiazePOXIDE HCL 10 MG CAPSULE PO SCH (05:00)
[2022-04-27] MEDS ORDERED: LORazepam 0.5 MG TABLET PO PRN
[2022-04-27] MEDS ORDERED: LORazepam 0.5 MG TABLET PO SCH (05:00)
[2022-04-27] MEDS ORDERED: chlordiazePOXIDE HCL 10 MG CAPSULE PO SCH (05:00)
[2022-04-28] MEDS ORDERED: LORazepam 0.5 MG TABLET PO ONE (05:00)
[2022-04-28] MEDS ORDERED: chlordiazePOXIDE HCL 10 MG CAPSULE PO ONE (05:00)
== END 2022-04-24 16:32 | disposition left against medical advice (07) | DRG 894 ==
LOC: YASAS 16:12 → Y3N 22:06
PROVIDERS: ADMIT Allergy & Immunology; ATTEND Surgery
PROC: HZ2ZZZZ Detoxification Services for Substance Abuse Treatment (ICD-10-PCS; principal; 2022-04-23)
DX: F10.230 Alcohol dependence with withdrawal, uncomplicated (principal); F17.210 Nicotine dependence, cigarettes, uncomplicated; F20.9 Schizophrenia, unspecified; F41.9 Anxiety disorder, unspecified; F32.A Depression, unspecified; E87.6 Hypokalemia; J45.20 Mild intermittent asthma, uncomplicated; K70.30 Alcoholic cirrhosis of liver without ascites; Z28.310 Unvaccinated for COVID-19; Z28.9 Immunization not carried out for unspecified reason
CPT/HCPCS: 36415; 80053; 82140; 85027; 86780; 87811; C9803-CS; U0003; U0005

== ENCOUNTER 2022-10-11 08:19 | Inpatient (IN) | payer OTHER ==
[2022-10-11 09:00] VITALS: BMI 17.7
[2022-10-11] MEDS ORDERED: POLYETHYLENE GLYCOL (HEALTHYLAX) 3350 17 GM PACKET PO PRN (10:00)
[2022-10-11] MEDS ORDERED: ACETAMINOPHEN 325 MG TABLET (FP) PO PRN (10:00)
[2022-10-11] MEDS ORDERED: IBUPROFEN 400 MG TABLET (FP) PO PRN (10:00)
[2022-10-11] MEDS ORDERED: MAGNESIUM HYDROX 2400MG/30ML ORAL SUSPENSION 30 ML CUP PO PRN (10:00)
[2022-10-11] MEDS ORDERED: DICYCLOMINE HCL 10 MG CAPSULE PO PRN (10:00)
[2022-10-11] MEDS ORDERED: BENZONATATE 200 MG CAPSULE PO PRN (10:00)
[2022-10-11] MEDS ORDERED: BENZOCAINE/MENTHOL (CHLORASEPTIC ) LOZENGE MM PRN (10:00)
[2022-10-11] MEDS ORDERED: P-EPHED 60MG/TRIPROLIDI 2.5MG TABLET PO PRN (10:00)
[2022-10-11] MEDS ORDERED: MAG HYDROX/AL HYDROX/SIMETH 30 ML UNIT-DOSE CUP PO PRN (10:00)
[2022-10-11] MEDS ORDERED: guaiFENesin 600 MG TABLET.ER (FP) PO PRN (10:00)
[2022-10-11] MEDS ORDERED: LOPERAMIDE HCL 2 MG CAPSULE PO PRN (10:00)
[2022-10-11] MEDS ORDERED: hydrOXYzine PAMOATE 25 MG CAPSULE (FP) PO PRN (10:00)
[2022-10-11] MEDS ORDERED: ONDANSETRON *ODT* 4 MG TABLET SL PRN (10:00)
[2022-10-11] MEDS ORDERED: IBUPROFEN 600 MG TABLET (FP) PO PRN (10:00)
[2022-10-11] MEDS ORDERED: BISMUTH SUBSALICYLATE 524 MG/30 ML PO PRN (10:00)
[2022-10-11] MEDS ORDERED: ALBUTEROL SO4 HFA INHALER IH ONE (10:57)
[2022-10-11] MEDS ORDERED: PRENATAL VITAMINS W/ FOLIC ACID TABLET (FP) PO ONE (10:58)
[2022-10-11] MEDS ORDERED: AZITHROMYCIN 250 MG TABLET PO ONE ×2 (11:00→13:00)
[2022-10-11] MEDS: ALBUTEROL SO4 HFA INHALER IH SCH ×4 (11:01→23:24)
[2022-10-11] MEDS: PRENATAL VITAMINS W/ FOLIC ACID TABLET (FP) PO SCH (11:02)
[2022-10-11] MEDS: NICOTINE POLACRILEX 2 MG GUM BUC PRN ×2 (12:31→15:50)
[2022-10-11 13:48] LABS: HEMATOCRIT 37.3 % (35.4-49); HEMOGLOBIN 12.3 GM/dL (11.7-16.9); MCH 32.8 pg (25.7-33.7); MCHC 33.1 g/dl (32.0-35.9); MEAN CELL VOLUME 99.3 fl (80-96); MEAN PLT VOLUME 6.8 fl (7.5-11.1); PLATELET COUNT 176 10^3/uL (134-434); RBC 3.76 M/mm3 (4.00-5.60); RDW 15.3 % (11.9-15.9); WHITE BLOOD COUNT 3.3 K/mm3 (4.0-10.0)
[2022-10-11 13:54] LABS: POTASSIUM 3.2 mmol/L (3.5-5.1)
[2022-10-11 14:13] LABS: CALCIUM 9.1 mg/dL (8.5-10.1)
[2022-10-11 14:14] LABS: BLOOD UREA NITROGEN 7.2 mg/dL (7-18)
[2022-10-11 14:17] LABS: CREATININE 0.8 mg/dL (0.55-1.3)
[2022-10-11 14:18] LABS: BILIRUBIN,TOTAL 1.2 mg/dL (0.2-1)
[2022-10-11] MEDS ORDERED: POTASSIUM CHLORIDE ORAL LIQUID 20 MEQ/15 ML PO ONE ×2 (15:30→19:30)
[2022-10-11] MEDS ORDERED: hydrOXYzine PAMOATE 50 MG CAPSULE (FP) PO PRN (16:27)
[2022-10-11] MEDS ORDERED: chlordiazePOXIDE HCL 25 MG CAPSULE PO PRN (18:17)
[2022-10-11] MEDS ORDERED: chlordiazePOXIDE HCL 25 MG CAPSULE PO ONE (18:30)
[2022-10-11] MEDS ORDERED: MELATONIN 5 MG TABLETS PO SCH ×2 (22:00)
[2022-10-11] MEDS ORDERED: THIAMINE HCL 100 MG TABLET (FP) PO SCH (22:00)
[2022-10-11] MEDS: chlordiazePOXIDE HCL 25 MG CAPSULE PO SCH (22:29)
[2022-10-11] MEDS: levETIRAcetam 500 MG TABLET (FP) PO SCH (22:29)
[2022-10-12] MEDS: ALBUTEROL SO4 HFA INHALER IH SCH ×4 (02:51→13:50)
[2022-10-12] MEDS: chlordiazePOXIDE HCL 25 MG CAPSULE PO SCH (05:34)
[2022-10-12] MEDS: NICOTINE POLACRILEX 2 MG GUM BUC PRN ×3 (05:36→11:39)
[2022-10-12 09:03] VITALS: RESP 18
[2022-10-12] MEDS ORDERED: AZITHROMYCIN 250 MG TABLET PO SCH (10:00)
[2022-10-12] MEDS ORDERED: diazePAM 5 MG TABLET PO PRN (10:20)
[2022-10-12] MEDS: PRENATAL VITAMINS W/ FOLIC ACID TABLET (FP) PO SCH (10:45)
[2022-10-12] MEDS: levETIRAcetam 500 MG TABLET (FP) PO SCH (10:46)
[2022-10-12] MEDS ORDERED: diazePAM 5 MG TABLET PO SCH (11:20)
[2022-10-12 13:19] VITALS: BP 125/91; PULSE 111; TEMP 98.1
[2022-10-13] MEDS ORDERED: chlordiazePOXIDE HCL 25 MG CAPSULE PO SCH (05:00)
[2022-10-14] MEDS ORDERED: chlordiazePOXIDE HCL 10 MG CAPSULE PO PRN
[2022-10-14] MEDS ORDERED: chlordiazePOXIDE HCL 10 MG CAPSULE PO SCH (05:00)
[2022-10-14] MEDS ORDERED: diazePAM 5 MG TABLET PO SCH (06:00)
[2022-10-15] MEDS ORDERED: chlordiazePOXIDE HCL 10 MG CAPSULE PO SCH (05:00)
[2022-10-15] MEDS ORDERED: diazePAM 5 MG TABLET PO SCH (06:00)
[2022-10-16] MEDS ORDERED: chlordiazePOXIDE HCL 10 MG CAPSULE PO ONE (05:00)
[2022-10-16] MEDS ORDERED: diazePAM 5 MG TABLET PO ONE (06:00)
== END 2022-10-12 13:25 | disposition left against medical advice (07) | DRG 894 ==
LOC: YASAS 08:19 → Y6N 10:49
PROVIDERS: ADMIT Allergy & Immunology; ATTEND Allergy & Immunology
PROC: HZ2ZZZZ Detoxification Services for Substance Abuse Treatment (ICD-10-PCS; principal; 2022-10-11)
DX: F10.230 Alcohol dependence with withdrawal, uncomplicated (principal); F19.280 Other psychoactive substance dependence with psychoactive substance-induced anxiety disorder; F20.0 Paranoid schizophrenia; F12.20 Cannabis dependence, uncomplicated; F17.210 Nicotine dependence, cigarettes, uncomplicated; E87.6 Hypokalemia; J45.20 Mild intermittent asthma, uncomplicated
CPT/HCPCS: 36415; 80053; 84132; 85027; 86780; 87635; 87811

== ENCOUNTER 2023-01-13 16:05 | Inpatient (IN) | payer OTHER ==
[2023-01-13 16:56] VITALS: BMI 18.1
[2023-01-13] MEDS ORDERED: BISMUTH SUBSALICYLATE 524 MG/30 ML PO PRN (18:57)
[2023-01-13] MEDS ORDERED: BENZOCAINE/MENTHOL (CHLORASEPTIC ) LOZENGE MM PRN (18:57)
[2023-01-13] MEDS ORDERED: BENZONATATE 200 MG CAPSULE PO PRN (18:57)
[2023-01-13] MEDS ORDERED: POLYETHYLENE GLYCOL (HEALTHYLAX) 3350 17 GM PACKET PO PRN (18:57)
[2023-01-13] MEDS ORDERED: NALOXONE HCL 0.4 MG/ML VIAL IM PRN (18:57)
[2023-01-13] MEDS ORDERED: DICYCLOMINE HCL 10 MG CAPSULE PO PRN (18:57)
[2023-01-13] MEDS ORDERED: METHOCARBAMOL 500 MG TABLET PO PRN (18:57)
[2023-01-13] MEDS ORDERED: hydrOXYzine PAMOATE 25 MG CAPSULE (FP) PO PRN (18:57)
[2023-01-13] MEDS ORDERED: IBUPROFEN 600 MG TABLET (FP) PO PRN (18:57)
[2023-01-13] MEDS ORDERED: MAGNESIUM HYDROX 2400MG/30ML ORAL SUSPENSION 30 ML CUP PO PRN (18:57)
[2023-01-13] MEDS ORDERED: guaiFENesin 600 MG TABLET.ER (FP) PO PRN (18:57)
[2023-01-13] MEDS ORDERED: ACETAMINOPHEN 325 MG TABLET (FP) PO PRN (18:57)
[2023-01-13] MEDS ORDERED: MAG HYDROX/AL HYDROX/SIMETH 30 ML UNIT-DOSE CUP PO PRN (18:57)
[2023-01-13] MEDS ORDERED: LORazepam 1 MG TABLET PO PRN (18:57)
[2023-01-13] MEDS ORDERED: NALOXONE HCL (KLOXXADO) 8 MG SPRAY NS PRN (18:57)
[2023-01-13] MEDS ORDERED: LOPERAMIDE HCL 2 MG CAPSULE PO PRN (18:57)
[2023-01-13] MEDS ORDERED: IBUPROFEN 400 MG TABLET (FP) PO PRN (18:57)
[2023-01-13] MEDS ORDERED: ONDANSETRON *ODT* 4 MG TABLET SL PRN (18:57)
[2023-01-13] MEDS ORDERED: ALBUTEROL SO4 HFA INHALER IH PRN (19:03)
[2023-01-13] MEDS: NICOTINE POLACRILEX 4 MG GUM BUC PRN (20:15)
[2023-01-13] MEDS ORDERED: MELATONIN 5 MG TABLETS PO SCH (22:00)
[2023-01-13] MEDS ORDERED: THIAMINE HCL 100 MG TABLET (FP) PO SCH (22:00)
[2023-01-13] MEDS: LORazepam 2 MG TABLET PO SCH (22:03)
[2023-01-14] MEDS: LORazepam 2 MG TABLET PO SCH ×2 (05:34→10:22)
[2023-01-14 06:24] VITALS: PULSE 96; RESP 18
[2023-01-14] MEDS: NICOTINE POLACRILEX 4 MG GUM BUC PRN (08:12)
[2023-01-14 09:09] VITALS: BP 151/102; TEMP 98.7
[2023-01-14] MEDS ORDERED: PRENATAL VITAMINS W/ FOLIC ACID TABLET (FP) PO SCH (10:00)
[2023-01-14 10:49] LABS: CHLORIDE 97 mmol/L (98-107); POTASSIUM 3.6 mmol/L (3.5-5.1); SODIUM 137 mmol/L (136-145)
[2023-01-14 10:51] LABS: HEMATOCRIT 34.5 % (35.4-49); HEMOGLOBIN 11.8 GM/dL (11.7-16.9); MCH 33.7 pg (25.7-33.7); MCHC 34.2 g/dl (32.0-35.9); MEAN CELL VOLUME 98.5 fl (80-96); MEAN PLT VOLUME 7.3 fl (7.5-11.1); PLATELET COUNT 115 10^3/uL (134-434); RDW 15.5 % (11.9-15.9); WHITE BLOOD COUNT 3.6 K/mm3 (4.0-10.0)
[2023-01-14 10:54] LABS: ALBUMIN 3.8 g/dl (3.4-5.0); ANION GAP 11 mmol/L (4-13); BLOOD UREA NITROGEN 9.8 mg/dL (7-18); CO2 29 mmol/L (21-32); GLUCOSE,RANDOM 130 mg/dL (74-106)
[2023-01-14 10:58] LABS: CREATININE 0.7 mg/dL (0.55-1.3); SGOT/AST 351 U/L (15-37); SGPT/ALT 41 U/L (13-61); TOT PROT 7.2 g/dl (6.4-8.2)
[2023-01-14 10:59] LABS: BILIRUBIN,TOTAL 1.6 mg/dL (0.2-1)
[2023-01-14 11:00] LABS: ALK PHOS 185 U/L (45-117)
[2023-01-14] MEDS ORDERED: propRANOLol HCL 10 MG TABLET PO SCH (14:00)
[2023-01-15] MEDS ORDERED: LORazepam 1 MG TABLET PO SCH (05:00)
[2023-01-16] MEDS ORDERED: LORazepam 0.5 MG TABLET PO PRN
[2023-01-16] MEDS ORDERED: LORazepam 0.5 MG TABLET PO SCH (05:00)
[2023-01-17] MEDS ORDERED: LORazepam 0.5 MG TABLET PO ONE (05:00)
== END 2023-01-14 09:47 | disposition left against medical advice (07) | DRG 894 ==
LOC: SUATTDRO 16:05 → YASAS 16:05 → Y6N 18:58
PROVIDERS: ADMIT Allergy & Immunology; ATTEND Surgery
PROC: HZ2ZZZZ Detoxification Services for Substance Abuse Treatment (ICD-10-PCS; principal; 2023-01-13)
DX: F10.230 Alcohol dependence with withdrawal, uncomplicated (principal); F20.0 Paranoid schizophrenia; Z68.1 Body mass index [BMI] 19.9 or less, adult; F12.20 Cannabis dependence, uncomplicated; F17.210 Nicotine dependence, cigarettes, uncomplicated; E80.6 Other disorders of bilirubin metabolism; I10 Essential (primary) hypertension; J45.20 Mild intermittent asthma, uncomplicated; K70.30 Alcoholic cirrhosis of liver without ascites; R74.01 Elevation of levels of liver transaminase levels; R63.4 Abnormal weight loss
CPT/HCPCS: 36415; 80053; 80307; 85027; 86780; 87635